=== PATIENT | female | born 1930 | race Caucasian/White ===

== ENCOUNTER → 2016-08-12 | Outpatient (CLI) | payer MEDICARE, BC | LOC: RAD 13:44 | PROVIDERS: ATTEND Internal Medicine Nephrology | DX: N18.3 Chronic kidney disease, stage 3 (moderate) (principal); N28.1 Cyst of kidney, acquired | CPT/HCPCS: 76770 ==

== ENCOUNTER 2017-03-15 12:41 | Inpatient (IN) | payer MEDICARE, BC ==
[2017-03-15] MEDS ORDERED: NORMAL SALINE 1000 ML 1,000 ML IV ONE (12:57)
--- NOTE | 2017-03-15 12:58 | ER Document Report ---
ED Medical Screen (RME) - General Chief Complaint: Diarrhea Stated Complaint: POSSIBLE DEHYDRATION Time Seen by Provider: 03/15/17 12:56 Notes: Patient was referred here by primary care physician. Patient has had weakness with decreased appetite and decreased fluid intake for several weeks. Patient has been complaining of some generalized nausea and abdominal "upset". Patient is also been complaining of headache and feeling "foggy". TRAVEL OUTSIDE OF THE [place] IN LAST 30 DAYS: No - Related Data Allergies/Adverse Reactions: sulfamethoxazole [From Septra] Allergy (Unknown, Verified 03/15/17 12:48) trimethoprim [From Septra] Allergy (Unknown, Verified 03/15/17 12:48) Past Medical History - Past Medical History Cardiac Medical History: Reports: Hx Hypertension Neurological Medical History: Denies: Hx Cerebrovascular Accident, Hx Migraine, Hx Seizures Renal/ Medical History: Denies: Hx Peritoneal Dialysis Past Surgical History: Reports: Hx Cholecystectomy Physical Exam - Vital signs Vitals: Pulse Resp BP Pulse Ox 61 18 100/52 L 99 03/15/17 12:47 03/15/17 12:47 03/15/17 12:47 03/15/17 12:47 Course - Vital Signs Vital signs: Temp Pulse Resp BP Pulse Ox 61 18 100/52 L 99 03/15/17 12:47 03/15/17 12:47 03/15/17 12:47 03/15/17 12:47
[2017-03-15 13:46] LABS: ABSOLUTE BASOPHILS # (AUTO) 0.1 10^3/uL (0.0-0.2); ABSOLUTE EOSINOPHILS # (AUTO) 0.1 10^3/uL (0.0-0.6); ABSOLUTE LYMPHOCYTES (AUTO) 2.3 10^3/uL (0.5-4.7); ABSOLUTE MONOCYTES (AUTO) 0.6 10^3/uL (0.1-1.4); ABSOLUTE NEUT (AUTO) 6.8 10^3/uL (1.7-8.2); BASOPHILS % (AUTO) 0.9 % (0-2); EOSINOPHILS % (AUTO) 1.4 % (0-6); HEMATOCRIT 40.7 % (36.0-47.0); HEMOGLOBIN 13.8 g/dL (12.0-15.5); HGB HCT DIFFERENCE 0.7; LYMPHOCYTES % (AUTO) 23.4 % (13-45); MEAN CORPUSCULAR HEMOGLOBIN 30.4 pg (27.0-33.4); MEAN CORPUSCULAR VOLUME 89 fl (80-97); MONOCYTES % (AUTO) 6.1 % (3-13); RED BLOOD COUNT 4.55 10^6/uL (3.72-5.28); RED CELL DISTRIBUTION WIDTH 13.4 % (11.5-14.0); SEGMENTED NEUTROPHILS % (AUTO) 68.2 % (42-78); WHITE BLOOD COUNT 9.9 10^3/uL (4.0-10.5)
[2017-03-15 13:59] LABS: APPEARANCE,URINE TURBID; BILIRUBIN,URINE NEGATIVE (NEGATIVE); GLUCOSE, URINE NEGATIVE (NEGATIVE); KETONES,URINE NEGATIVE (NEGATIVE); LEUKOCYTE ESTERASE,URINE LARGE (NEGATIVE); NITRITE,URINE NEGATIVE (NEGATIVE); PROTEIN,URINE 30 mg/dL (NEGATIVE); URINE SPECIFIC GRAVITY 1.015; UROBILINOGEN,URINE NEGATIVE mg/dL (<2.0)
--- NOTE | 2017-03-15 14:11 | ER Document Report ---
ED General - General Chief Complaint: Diarrhea Stated Complaint: POSSIBLE DEHYDRATION Time Seen by Provider: 03/15/17 12:56 Information source: Patient, Relative Notes: 86-year-old female patient. 2 week history of worsening diarrhea. Now feeling very dehydrated. Has a mild headache. No significant abdominal pain. Patient states that she started on some blood pressure medications about a month ago. This is the only change. Denies any recent antibiotic use. No recent surgeries. Medication that was started with lisinopril. Patient denies any swelling in the mouth. No tongue swelling. No other issues. Having frequent loose stools. Denies any dysuria TRAVEL OUTSIDE OF THE [place] IN LAST 30 DAYS: No - HPI Onset: Last week Onset/Duration: Gradual Quality of pain: Achy, Cramping Severity: Mild Pain Level: 1 Associated symptoms: Diarrhea, Hoarseness, Nausea. denies: Vomiting Exacerbated by: Denies - Related Data Allergies/Adverse Reactions: sulfamethoxazole [From Septra] Allergy (Unknown, Verified 03/15/17 12:48) trimethoprim [From Septra] Allergy (Unknown, Verified 03/15/17 12:48) Past Medical History - General Information source: Patient, Relative - Social History Smoking Status: Unknown if Ever Smoked Chew tobacco use (# tins/day): No Frequency of alcohol use: None Drug Abuse: None Family History: Reviewed & Not Pertinent Patient has suicidal ideation: No Patient has homicidal ideation: No - Past Medical History Cardiac Medical History: Reports: Hx Hypertension Neurological Medical History: Denies: Hx Cerebrovascular Accident, Hx Migraine, Hx Seizures Renal/ Medical History: Denies: Hx Peritoneal Dialysis Past Surgical History: Reports: Hx Cholecystectomy - Immunizations Hx Pneumococcal Vaccination: 05/08/07 Review of Systems - Review of Systems Constitutional: No symptoms reported, Malaise, Weakness EENT: No symptoms reported, Other - Dry mucous membranes Cardiovascular: No symptoms reported Respiratory: No symptoms reported Gastrointestinal: No symptoms reported, See HPI, Diarrhea Genitourinary: No symptoms reported Female Genitourinary: No symptoms reported Musculoskeletal: No symptoms reported Skin: No symptoms reported Hematologic/Lymphatic: No symptoms reported Neurological/Psychological: No symptoms reported, Headaches Physical Exam - Vital signs Vitals: Pulse Resp BP Pulse Ox 61 18 100/52 L 99 03/15/17 12:47 03/15/17 12:47 03/15/17 12:47 03/15/17 12:47 Interpretation: Normal - General General appearance: Appears well, Alert - HEENT Head: Normocephalic, Atraumatic Eyes: Normal Pupils: PERRL Mucous membranes: Dry - Respiratory Respiratory status: No respiratory distress Chest status: Nontender Breath sounds: Normal Chest palpation: Normal - Cardiovascular Rhythm: Regular Heart sounds: Normal auscultation Murmur: No - Abdominal Inspection: Normal Distension: No distension Bowel sounds: Hyperactive Tenderness: Nontender. No: Tender, Tucker's sign, Guarding, Rebound Organomegaly: No organomegaly - Back Back: Normal, Nontender - Extremities General upper extremity: Normal inspection, Nontender, Normal color, Normal ROM , Normal temperature General lower extremity: Normal inspection, Nontender, Normal color, Normal ROM , Normal temperature, Normal weight bearing. No: Ludmila's sign - Neurological Neuro grossly intact: Yes Cognition: Normal Orientation: AAOx4 Vicky Coma Scale Eye Opening: Spontaneous [place] Coma Scale Verbal: Oriented Vicky Coma Scale Motor: Obeys Commands [place] Coma Scale Total: 15 Speech: Normal Motor strength normal: LUE, RUE, LLE, RLE Sensory: Normal - Psychological Associated symptoms: Normal affect, Normal mood - Skin Skin Temperature: Warm Skin Moisture: Dry Skin Color: Normal Course - Re-evaluation Re-evalutation: 03/15/17 15:46 Patient obviously mildly dehydrated with very dry buccal mucosa. Will get x- ray of the abdomen, cardiac workup, electrolytes, urinalysis, head CT due to the headache and reassess. The patient has a bowel movement here will send for C. difficile and culture - Vital Signs Vital signs: Temp Pulse Resp BP Pulse Ox 61 18 100/52 L 99 03/15/17 12:47 03/15/17 12:47 03/15/17 12:47 03/15/17 12:47 - Laboratory Result Diagrams: 03/15/17 13:30 03/15/17 15:48 Laboratory results interpreted by me: 03/15/17 03/15/17 03/15/17 13:30 15:48 15:48 Chloride 109 H Carbon Dioxide 16 L BUN 121 H Creatinine 5.90 H Est GFR ( Amer) 8 L Est GFR (Non-Af Amer) 7 L Direct Bilirubin 0.5 H Creatine Kinase 25 L Urine Protein 30 H Ur Leukocyte Esterase LARGE H Urine Ascorbic Acid 40 H Discharge - Discharge Clinical Impression: Urinary (tract) obstruction Acute renal failure Qualifiers: Acute renal failure type: unspecified Qualified Code(s): N17.9 - Acute kidney failure, unspecified Condition: Fair Disposition: ADMITTED INPATIENT Admitting Provider: Yasmany Marshall Unit Admitted: Telemetry
--- NOTE | 2017-03-15 14:23 | RADIOLOGY REPORT (SQ) ---
EXAM DESCRIPTION: CT HEAD WITHOUT COMPLETED DATE/TIME: 03/15/2017 2:13 pm REASON FOR STUDY: mendez/ams COMPARISON: None. TECHNIQUE: Axial images acquired through the brain without intravenous contrast. Images reviewed wi th bone, brain and subdural windows. Images stored on PACS. All CT scanners at this facility use dose modulation, iterative reconstruction, and/or weight based d osing when appropriate to reduce radiation dose to as low as reasonably achievable (ALARA). [facility]: Dose Right [facility]: CareDose [facility]: Dose Right [facility]: Teradose 4D [facility]: Smart [employer] RADIATION DOSE: Up-to-date CT equipment and radiation dose reduction techniques were employed. CTDIv ol: 64.6 mGy. DLP: 1163 mGy-cm. mGy. LIMITATIONS: None. FINDINGS: VENTRICLES: Normal size and contour. CEREBRUM: No masses. No hemorrhage. No midline shift. No evidence for acute infarction. Few scatte red areas of low density in the white matter most likely chronic small vessel ischemic changes. Mild cortical atrophy. CEREBELLUM: No masses. No hemorrhage. No alteration of density. No evidence for acute infarction. EXTRAAXIAL SPACES: No fluid collections. No masses. ORBITS AND GLOBE: No intra- or extraconal masses. Normal contour of globe without masses. CALVARIUM: No fracture. PARANASAL SINUSES: No fluid or mucosal thickening. SOFT TISSUES: No mass or hematoma. OTHER: No other significant finding. IMPRESSION: Involutional changes of aging with microvascular ischemia and no acute intracranial find ings. EVIDENCE OF ACUTE STROKE: NO. COMMENT: Quality ID # [id number]: Final reports with documentation of one or more dose reduction techniques (e.g., Automated exposure control, adjustment of the mA and/or kV according to patient size, use of iterative reconstruction technique) TECHNICAL DOCUMENTATION: JOB ID: [id number] [employer]- All Rights Reserved
--- NOTE | 2017-03-15 15:55 | RADIOLOGY REPORT (SQ) ---
EXAM DESCRIPTION: ACUTE ABDOMEN SERIES COMPLETED DATE/TIME: 03/15/2017 3:44 pm REASON FOR STUDY: diarrhea and abd pain COMPARISON: None. NUMBER OF VIEWS: Three views. TECHNIQUE: Frontal chest, supine abdomen and upright/decubitus abdomen radiographic images acquired. LIMITATIONS: Study is limited somewhat due to the patient's body habitus. FINDINGS: CHEST: No acute consolidations or pleural effusions are identified. Nodular density is id entified in the left mid lung feel and the possibility of a neoplastic process cannot be excluded. FREE AIR: None. No abnormal gas collections. BOWEL GAS PATTERN: Nonobstructive pattern. No dilated loops or air fluid levels. CALCIFICATIONS: No suspicious calcifications. HARDWARE: Surgical clips are identified in the right upper quadrant. Surgical clips are identified o verlying the upper pelvis in the midline. SOFT TISSUES: No gross mass or suggestion of organomegaly. BONES: No acute fracture. No worrisome bone lesions. OTHER: No other significant finding. IMPRESSION: Somewhat limited study as noted above. A nodular density is identified in the left mid lung field and the possibility of a neoplastic process cannot be excluded. Other findings as noted susie montano TECHNICAL DOCUMENTATION: JOB ID: [id number] [employer]- All Rights Reserved
[2017-03-15] MEDS ORDERED: CEFTRIAXONE INJ 1000 MG VIAL IV ONE (16:05)
[2017-03-15 16:24] LABS: ALANINE AMINOTRANSFERASE 21 U/L (9-52); ALBUMIN 3.8 g/dL (3.5-5.0); ALKALINE PHOSPHATASE 54 U/L (38-126); ANION GAP 17 (5-19); ASPARTATE AMINO TRANSFERASE 20 U/L (14-36); BILIRUBIN,DIRECT 0.5 mg/dL (0.0-0.4); BILIRUBIN,TOTAL 0.5 mg/dL (0.2-1.3); CALCIUM 8.8 mg/dL (8.4-10.2); CARBON DIOXIDE 16 mmol/L (22-30); CHLORIDE 109 mmol/L (98-107); GLUCOSE 93 mg/dL (75-110); POTASSIUM 4.1 mmol/L (3.6-5.0); SODIUM 141.7 mmol/L (137-145); TOTAL PROTEIN 6.4 g/dL (6.3-8.2)
[2017-03-15 16:38] LABS: BLOOD UREA NITROGEN 121 mg/dL (7-20); TROPONIN I < 0.012 ng/mL
--- NOTE | 2017-03-15 17:55 | RADIOLOGY REPORT (SQ) ---
EXAM DESCRIPTION: CT CHEST WITHOUT; CT ABD/PELVIS NO ORAL OR IV COMPLETED DATE/TIME: 03/15/2017 5:34 pm REASON FOR STUDY: Abnormal x-ray abnormal x-ray; Acute renal failure with infection concern for obs COMPARISON: Earlier radiograph TECHNIQUE: CT scan of the chest performed without intravenous contrast using helical scanning techni que. Images reviewed with lung, soft tissue and bone windows. Reconstructed coronal and sagittal MPR images reviewed. All images stored on PACS. CT scan of the abdomen and pelvis performed without intravenous contrast and withoutoral contrast usi ng helical scanning technique with dynamic intravenous contrast injection. Images reviewed with lung , soft tissue and bone windows. Reconstructed coronal and sagittal MPR images reviewed. All images stored on PACS. All CT scanners at this facility use dose modulation, iterative reconstruction, and/or weight based d osing when appropriate to reduce radiation dose to as low as reasonably achievable (ALARA). [facility]: Dose Right [facility]: CareDose [facility]: Dose Right [facility]: Teradose 4D [facility]: [employer] RADIATION DOSE: Up-to-date CT equipment and radiation dose reduction techniques were employed. CTDIv ol: 16.5 mGy. DLP: 1097 mGy-cm. mGy. LIMITATIONS: No technical limitations. FINDINGS: CHEST: AXILLAE: No adenopathy. CHEST WALL: No masses. No subcutaneous air. LUNGS: No nodules or masses. No pneumothorax. No infiltrates. PLEURA: No effusions. No calcifications. THYROID: No masses or significant asymmetry. HILAR AND MEDIASTINAL STRUCTURES: No identified masses or abnormal nodes. AORTA AND GREAT VESSELS: No aneurysm. HEART: No pericardial effusion. HARDWARE AND LIFELINES: None. BONES: 2 cm calcified benign-appearing bone lesion in the inferior aspect of the posterior left 8th r ib. No acute findings. OTHER: No other significant finding. ABDOMEN AND PELVIS: LIVER: Normal size. No masses. No dilated ducts. SPLEEN: Normal size. No focal lesions. PANCREAS: No masses. No significant calcifications. No adjacent inflammation or peripancreatic flui d collections. Pancreatic duct not dilated. GALLBLADDER: Surgically absent. ADRENAL GLANDS: No significant masses or asymmetry. RIGHT KIDNEY AND URETER: No solid masses. Assessment limited by lack of IV contrast. No significant calcifications. No hydronephrosis or hydroureter. LEFT KIDNEY AND URETER: No solid masses. Assessment limited by lack of IV contrast. No significant calcifications. No hydronephrosis or hydroureter. AORTA AND VESSELS: No aneurysm. RETROPERITONEUM: No retroperitoneal adenopathy, hemorrhage or masses. APPENDIX: Normal. LARGE AND SMALL BOWEL: No dilatation. No masses. No wall thickening. ABDOMINAL WALL: Prior ventral hernia repair. PERITONEAL CAVITY: No free air. No free fluid. No peritoneal implants or masses. PELVIS: No free fluid. Prior hysterectomy. Normal bladder. BONES: No acute findings. Multilevel degenerative changes. OTHER: No other significant finding. IMPRESSION: 2 cm calcified benign-appearing bone lesion in the inferior aspect of the posterior left 8th rib explains the radiographic appearance. No pulmonary mass. No acute findings in the abdomen or pelvis. TECHNICAL DOCUMENTATION: JOB ID: [id number] Quality ID # [id number]: Final reports with documentation of one or more dose reduction techniques (e.g., Au tomated exposure control, adjustment of the mA and/or kV according to patient size, use of iterative reconstruction technique) 2010 [employer]- All Rights Reserved
[2017-03-15] MEDS ORDERED: NORMAL SALINE 1000 ML 1,000 ML IV PRN (18:29)
[2017-03-15] MEDS ORDERED: ONDANSETRON HCL INJ/PF 4 MG/2 ML SDV IV PRN (18:29)
[2017-03-15] MEDS ORDERED: DIPHENHYDRAMINE HCL 50 MG PO PRN (18:35)
--- NOTE | 2017-03-15 19:14 | PDOC H&P ---
History of Present Illness Admission Date/PCP: 03/15/17 18:16 Patient complains of: Generalized weakness and diarrhea History of Present Illness: Patient is an 86-year-old woman with history of hypertension, depression myasthenia gravis presented to the hospital with complaint of intermittent loose stools for the past 2 week and decreased appetite. She denies having any abdominal pain no nausea vomiting. She denies any recent antibiotic use or sick contact. She is on lisinopril and HCTZ and has been taking her medication as prescribed. She denies having any fever chills and she has no evidence of leukocytosis on presentation. She lives at home by herself. Her son and [id number] present during my round, they decided to bring her to the hospital because she was progressively getting weaker. CT scan of her abdomen without acute findings findings and 2 cm calcifying benign- appearing bone lesion in the inferior aspect of the posterior left eighth rib. No Pulmonary mass. She was found to have a creatinine of 5.9, BUN of 121 and CO2 16. She was started on IVF in ED and had no complaints during my visit. Past Medical History Cardiac Medical History: Reports: Hypertension, Other - Myasthenia gravis Neurological Medical History: Denies: Migraine, Seizures Past Surgical History Past Surgical History: Reports: Cholecystectomy Social History Lives with: Alone Smoking Status: Unknown if Ever Smoked Frequency of Alcohol Use: None Hx Recreational Drug Use: No Family History Family History: Reviewed & Not Pertinent, Malignancy - Brother with bone cancer Parental Family History Reviewed: Yes Children Family History Reviewed: Yes Sibling(s) Family History Reviewed.: Yes Medication/Allergy Home Medications: Aspirin [Aspirin EC] 81 mg PO DAILY 03/15/17 Atorvastatin Calcium [Lipitor 20 mg Tablet] 20 mg PO QHS 03/15/17 Bisoprolol/Hydrochlorothiazide [Ziac 5-6.25 mg Tablet] 1 tab PO Q12 03/15/17 Diphenhydramine HCl [Nighttime Sleep Aid] 50 mg PO HSP PRN 03/15/17 Ergocalciferol (Vitamin D2) [Vitamin D2] 50,000 unit PO WE@1000 03/15/17 Fenofibrate 160 mg PO QHS 03/15/17 Lisinopril [Prinivil 2.5 mg Tablet] 2.5 mg PO DAILY 03/15/17 Sertraline HCl [Zoloft] 25 mg PO DAILY 03/15/17 Allergies/Adverse Reactions: sulfamethoxazole [From Septra] Allergy (Unknown, Verified 03/15/17 12:48) trimethoprim [From Septra] Allergy (Unknown, Verified 03/15/17 12:48) Review of Systems Constitutional: PRESENT: anorexia. ABSENT: chills, fever(s), headache(s), weight gain, weight loss Eyes: ABSENT: visual disturbances Ears: ABSENT: hearing changes Cardiovascular: ABSENT: chest pain, dyspnea on exertion, edema, orthropnea, palpitations Respiratory: ABSENT: cough, hemoptysis Gastrointestinal: PRESENT: diarrhea. ABSENT: abdominal pain, constipation, hematemesis, hematochezia, nausea, vomiting Genitourinary: ABSENT: dysuria, hematuria Musculoskeletal: ABSENT: joint swelling Integumentary: ABSENT: rash, wounds Neurological: PRESENT: weakness. ABSENT: abnormal gait, abnormal speech, confusion, dizziness, focal weakness, syncope Psychiatric: ABSENT: anxiety, depression, homidical ideation, suicidal ideation Endocrine: ABSENT: cold intolerance, heat intolerance, polydipsia, polyuria Hematologic/Lymphatic: ABSENT: easy bleeding, easy bruising Physical Exam Vital Signs: Temp Pulse Resp BP Pulse Ox 61 18 100/52 L 99 03/15/17 12:47 03/15/17 12:47 03/15/17 12:47 03/15/17 12:47 Results Laboratory Results: 03/15/17 03/15/17 03/15/17 15:48 15:48 17:50 Sodium 141.7 Potassium 4.1 Chloride 109 H Carbon Dioxide 16 L Anion Gap 17 BUN 121 H Creatinine 5.90 H Lactic Acid 1.3 Calcium 8.8 Troponin I < 0.012 Impressions: Head CT 03/15/17 12:57 IMPRESSION: Involutional changes of aging with microvascular ischemia and no acute intracranial findings. EVIDENCE OF ACUTE STROKE: NO. Acute Abdomen Series 03/15/17 15:09 IMPRESSION: Somewhat limited study as noted above. A nodular density is identified in the left mid lung field and the possibility of a neoplastic process cannot be excluded. Other findings as noted above Abdomen/Pelvis CT 03/15/17 17:11 IMPRESSION: 2 cm calcified benign-appearing bone lesion in the inferior aspect of the posterior left 8th rib explains the radiographic appearance. No pulmonary mass. No acute findings in the abdomen or pelvis. Chest CT 03/15/17 17:11 IMPRESSION: 2 cm calcified benign-appearing bone lesion in the inferior aspect of the posterior left 8th rib explains the radiographic appearance. No pulmonary mass. No acute findings in the abdomen or pelvis. Assessment & Plan - Diagnosis (1) Generalized weakness Is this a current diagnosis for this admission?: Yes Plan: This is likely secondary to dehydration vs UTI Continue IV fluid and she has been given ceftriaxone Follow-up blood and urine culture (2) Urinary tract infection Qualifiers: Urinary tract infection type: acute cystitis Is this a current diagnosis for this admission?: Yes Plan: Continue ceftriaxone and follow-up urine culture (3) Acute renal failure Qualifiers: Acute renal failure type: with acute tubular necrosis Qualified Code(s): N17.0 - Acute kidney failure with tubular necrosis Is this a current diagnosis for this admission?: Yes Plan: Likely secondary to dehydration exacerbated by HCTZ and lisinopril CAT scan of the abdomen without evidence of hydronephrosis Continue IV fluid hydration Renally dosed all medication Strict intake and output (4) Hypertension Qualifiers: Hypertension type: essential hypertension Qualified Code(s): I10 - Essential (primary) hypertension Is this a current diagnosis for this admission?: Yes Plan: Blood pressure borderline low Holding home antihypertensive Continue IV fluid hydration (5) Dehydration Is this a current diagnosis for this admission?: Yes Plan: Likely in the setting of GI loss Continue IV fluid hydration (6) Metabolic acidosis Is this a current diagnosis for this admission?: Yes Plan: In the setting of GI losses On IV fluid hydration and follow-up lab (7) DVT prophylaxis Is this a current diagnosis for this admission?: Yes Plan: Heparin subQ - Time Time Spent: 50 to 70 Minutes Medications reviewed and adjusted accordingly: Yes Anticipated discharge: Home - Inpatient Certification Based on my medical assessment, after consideration of the patient's comorbidities, presenting symptoms, or acuity I expect that the services needed warrant INPATIENT care.: Yes I certify that my determination is in accordance with my understanding of Medicare's requirements for reasonable and necessary INPATIENT services [42 CFR 412.3e].: Yes Medical Necessity: Need For IV Fluids, Need for IV Antibiotics
[2017-03-15] MEDS: ATORVASTATIN CALCIUM 20 MG TABLET PO SCH (21:32)
[2017-03-15] MEDS: FENOFIBRATE NANOCRYSTALLIZED 145 MG TABLET PO SCH (21:32)
[2017-03-15] MEDS ORDERED: (PENDING PHARMACY ID) (Fenofibrate [Fenofibrate] 160 MG) PO SCH (22:00)
[2017-03-15] MEDS: HEPARIN SOD (PORCINE) 5,000 UNIT/ML 1 ML SYRINGE SUBCUT SCH (23:14)
[2017-03-16] MEDS: HEPARIN SOD (PORCINE) 5,000 UNIT/ML 1 ML SYRINGE SUBCUT SCH ×3 (05:58→22:47)
[2017-03-16 07:01] LABS: ABSOLUTE BASOPHILS # (AUTO) 0.1 10^3/uL (0.0-0.2); ABSOLUTE EOSINOPHILS # (AUTO) 0.2 10^3/uL (0.0-0.6); ABSOLUTE LYMPHOCYTES (AUTO) 1.6 10^3/uL (0.5-4.7); ABSOLUTE MONOCYTES (AUTO) 0.5 10^3/uL (0.1-1.4); ABSOLUTE NEUT (AUTO) 4.4 10^3/uL (1.7-8.2); BASOPHILS % (AUTO) 1.2 % (0-2); EOSINOPHILS % (AUTO) 2.3 % (0-6); HEMATOCRIT 34.2 % (36.0-47.0); HGB HCT DIFFERENCE 0.9; LYMPHOCYTES % (AUTO) 23.7 % (13-45); MEAN CORPUSCULAR HEMOGLOBIN 30.7 pg (27.0-33.4); MEAN CORPUSCULAR HGB CONC 34.1 g/dL (32.0-36.0); MEAN CORPUSCULAR VOLUME 90 fl (80-97); MONOCYTES % (AUTO) 7.4 % (3-13); RED CELL DISTRIBUTION WIDTH 13.4 % (11.5-14.0); SEGMENTED NEUTROPHILS % (AUTO) 65.4 % (42-78); WHITE BLOOD COUNT 6.7 10^3/uL (4.0-10.5)
[2017-03-16 07:05] LABS: HEMOGLOBIN 11.7 g/dL (12.0-15.5)
[2017-03-16] MEDS ORDERED: INFLUENZA ADLT QUAD (36MOS+) 2017-18 VAC 0.5 ML SYR IM PRN (07:30)
[2017-03-16 07:34] LABS: ANION GAP 16 (5-19); BLOOD UREA NITROGEN 113 mg/dL (7-20); CALCIUM 8.8 mg/dL (8.4-10.2); CARBON DIOXIDE 13 mmol/L (22-30); CHLORIDE 115 mmol/L (98-107); CREATININE RESULT 4.65 mg/dL (0.52-1.25); GLUCOSE 88 mg/dL (75-110); MAGNESIUM 2.3 mg/dL (1.6-2.3); POTASSIUM 3.6 mmol/L (3.6-5.0); SODIUM 144.3 mmol/L (137-145)
--- NOTE | 2017-03-16 08:05 | EKG REPORT ---
SEVERITY:- ABNORMAL ECG - SINUS RHYTHM NONSPECIFIC INTRAVENTRICULAR CONDUCTION DELAY : Confirmed by: Davion Gray MD 16-Mar-2017 08:05:17
[2017-03-16] MEDS ORDERED: (PENDING PHARMACY ID) (Sertraline Hcl [Zoloft] 25 MG) PO SCH (10:00)
[2017-03-16] MEDS: ASPIRIN 81 MG TABLET, ENT COATED PO SCH (10:54)
[2017-03-16] MEDS: SODIUM BICARBONATE 650 MG TABLET PO SCH ×3 (10:54→17:40)
[2017-03-16] MEDS: SERTRALINE HCL 50 MG TABLET PO SCH (10:54)
[2017-03-16] MEDS ORDERED: CEFTRIAXONE SODIUM 1,500 MG in DEXTROSE 5%-WATER 100 ML IV SCH (18:00)
--- NOTE | 2017-03-16 18:40 | PDOC CONSULTATION ---
Consultation Consult Date: 03/16/17 Attending physician:: YASIR MARSHALL Consult reason:: I was asked by Dr. Marshall to see the patient because of worsening kidney function. History of Present Illness Admission Date/PCP: 03/15/17 18:29 History of Present Illness: Patient is an 86-year-old woman with history of hypertension, depression, myasthenia gravis and chronic kidney disease who presented to the hospital with complaint of intermittent loose stools for the past 2 week and decreased appetite. She denies having any abdominal pain, no nausea vomiting. She denies any recent antibiotic use or sick contact. She is on lisinopril and HCTZ and has been taking her medication as prescribed. She denies having any fever chills and she has no evidence of leukocytosis on presentation. She lives at home by herself. Her son and [id number] present during my round, they decided to bring her to the hospital because she was progressively getting weaker. CT scan of her abdomen without acute findings findings and 2 cm calcifying benign-appearing bone lesion in the inferior aspect of the posterior left eighth rib. No Pulmonary mass. She was found to have a creatinine of 5.9 , BUN of 121 and CO2 16. She was started on IVF. I tried to confirm with the patient about the history of diarrhea but she could not really specify or provide more information regarding this. She was not a very good historian and sometimes she has some difficulty with articulation. She tells me she had an headache. She does say though that she feels tired and just did not want to do anything at home for the last week at least. He said she has no energy and she feels weak. She admits that her appetite is not good and for a few days she is was only taking in Ensure without much solid food. She admits not drinking much water. She describes urinary urgency but denies any dysuria. She denies fever. She continues to receive IV fluids and IV antibiotics for urinary tract infection as of this time. She denies any chest pains, shortness of breath, no leg swelling. Today her kidney function showed that her BUN is 115 creatinine is slightly better at 4.65 with estimated GFR of 9 from 7 yesterday. Her bicarbonate is worse at 13 after IV fluid hydration. She otherwise looks hemodynamically stable. She is making some urine output but not sure if it is adequately recorded. Her noncontrast abdominal CT did not show any hydronephrosis, calcifications nor masses bilaterally. Past Medical History Cardiac Medical History: Reports: Hypertension-primary Neurological Medical History: Reports: Other - Myasthenia gravis Renal/ Medical History: Reports: Chronic Kidney Disease Stage III Past Surgical History Past Surgical History: Reports: Cholecystectomy, Hysterectomy, Other - Cataract surgery Social History Information Source: Patient Lives with: Alone Smoking Status: Never Smoker Frequency of Alcohol Use: None Hx Recreational Drug Use: No Drugs: None Hx Prescription Drug Abuse: No - Advance Directive Resuscitation Status: Full Code Family History Family History: Malignancy - Brother has a bone cancer, Other - Brother has emphysema Parental Family History Reviewed: Yes Children Family History Reviewed: Yes Sibling(s) Family History Reviewed.: Yes Medication/Allergy Home Medications: Aspirin [Aspirin EC] 81 mg PO DAILY 03/15/17 Atorvastatin Calcium [Lipitor 20 mg Tablet] 20 mg PO QHS 03/15/17 Bisoprolol/Hydrochlorothiazide [Ziac 5-6.25 mg Tablet] 1 tab PO Q12 03/15/17 Diphenhydramine HCl [Nighttime Sleep Aid] 50 mg PO HSP PRN 03/15/17 Ergocalciferol (Vitamin D2) [Vitamin D2] 50,000 unit PO WE@1000 03/15/17 Fenofibrate 160 mg PO QHS 03/15/17 Lisinopril [Prinivil 2.5 mg Tablet] 2.5 mg PO DAILY 03/15/17 Sertraline HCl [Zoloft] 25 mg PO DAILY 03/15/17 Allergies/Adverse Reactions: sulfamethoxazole [From Septra] Allergy (Unknown, Verified 03/15/17 12:48) trimethoprim [From Septra] Allergy (Unknown, Verified 03/15/17 12:48) Review of Systems All systems: reviewed and no additional remarkable complaints except as stated Review of Systems: Constitutional: ABSENT: chills, fever(s), weight gain, weight loss; admits fatigue, generalized weakness, decreased energy, and headache Eyes: ABSENT: visual disturbances Ears: ABSENT: hearing changes Cardiovascular: ABSENT: chest pain, dyspnea on exertion, edema, orthropnea, palpitations Respiratory: ABSENT: cough, dyspnea, hemoptysis Gastrointestinal: ABSENT: abdominal pain, constipation, hematemesis, hematochezia, nausea, vomiting; admits diarrhea Genitourinary: ABSENT: dysuria, hematuria; admits urinary urgency Musculoskeletal: ABSENT: joint swelling Integumentary: ABSENT: rash, wounds Neurological: ABSENT: abnormal gait, abnormal speech, confusion, dizziness, focal weakness, numbness, syncope Psychiatric: ABSENT: anxiety, depression Endocrine: ABSENT: cold intolerance, heat intolerance, polydipsia, polyuria Hematologic/Lymphatic: ABSENT: easy bleeding, easy bruising, lymphadenopathy Physical Exam Vital Signs: Temp Pulse Resp BP Pulse Ox 97.3 F 57 L 18 101/49 L 98 03/16/17 11:40 03/16/17 15:48 03/16/17 11:40 03/16/17 15:48 03/16/17 15:48 Intake & Output 03/15/17 03/16/17 03/17/17 06:59 06:59 06:59 Intake Total 1040 3507 Output Total 300 Balance 740 3507 Weight 82.1 kg Exam: General appearance: no acute distress, cooperative, well-developed, well- nourished Head exam: PRESENT: atraumatic, normocephalic Eye exam: PRESENT: Conjunctiva [place], EOMI, PERRLA. ABSENT: conjunctival injection, scleral icterus Mouth exam: PRESENT: moist, neck supple, tongue midline Neck exam: PRESENT: full ROM. ABSENT: carotid bruit, JVD, lymphadenopathy, thyromegaly Respiratory exam: PRESENT: clear to auscultation bilaterally. ABSENT: rales, rhonchi, stridor, wheezes Cardiovascular exam: PRESENT: RRR, +S1, +S2. ABSENT: systolic murmur Pulses: PRESENT: normal radial pulses, normal dorsalis pedis pulses GI/Abdominal exam: PRESENT: normal bowel sounds, soft. ABSENT: guarding, mass, tenderness Rectal exam: deferred Extremities exam: PRESENT: full ROM. ABSENT: calf tenderness, pedal edema Musculoskeletal: PRESENT: full ROM. ABSENT: deformity Neurological exam: PRESENT: alert, Awake, Oriented to person, Oriented to place , Oriented to time, reflexes normal, CN II-XII grossly intact. She has difficulty with articulation and speech. ABSENT: motor sensory deficit Psychiatric exam: PRESENT: appropriate affect, normal mood. ABSENT: homicidal ideation, suicidal ideation Skin exam: PRESENT: intact, dry, warm. ABSENT: rash Results Laboratory Results: 03/16/17 06:30 03/16/17 06:30 03/16/17 03/16/17 06:30 06:30 WBC 6.7 RBC 3.80 Hgb 11.7 L D Hct 34.2 L MCV 90 MCH 30.7 MCHC 34.1 RDW 13.4 Plt Count 170 Seg Neutrophils % 65.4 Lymphocytes % 23.7 Monocytes % 7.4 Eosinophils % 2.3 Basophils % 1.2 Absolute Neutrophils 4.4 Absolute Lymphocytes 1.6 Absolute Monocytes 0.5 Absolute Eosinophils 0.2 Absolute Basophils 0.1 Sodium 144.3 Potassium 3.6 Chloride 115 H Carbon Dioxide 13 L Anion Gap 16 BUN 113 H Creatinine 4.65 H Est GFR ( Amer) 11 L Est GFR (Non-Af Amer) 9 L Glucose 88 Calcium 8.8 Magnesium 2.3 Impressions: Head CT 03/15/17 12:57 IMPRESSION: Involutional changes of aging with microvascular ischemia and no acute intracranial findings. EVIDENCE OF ACUTE STROKE: NO. Acute Abdomen Series 03/15/17 15:09 IMPRESSION: Somewhat limited study as noted above. A nodular density is identified in the left mid lung field and the possibility of a neoplastic process cannot be excluded. Other findings as noted above Abdomen/Pelvis CT 03/15/17 17:11 IMPRESSION: 2 cm calcified benign-appearing bone lesion in the inferior aspect of the posterior left 8th rib explains the radiographic appearance. No pulmonary mass. No acute findings in the abdomen or pelvis. Chest CT 03/15/17 17:11 IMPRESSION: 2 cm calcified benign-appearing bone lesion in the inferior aspect of the posterior left 8th rib explains the radiographic appearance. No pulmonary mass. No acute findings in the abdomen or pelvis. Assessment & Plan - Diagnosis (1) Acute kidney injury superimposed on chronic kidney disease Is this a current diagnosis for this admission?: Yes Plan: Patient is nonoliguric and her urine does not show any microscopic hematuria with minimal proteinuria. This could be most likely secondary to acute prerenal azotemia secondary to volume depletion. Agree with holding the FERNANDO inhibitors and hydrochlorothiazide nor any other nephrotoxic agents. Agree with initial IV fluid hydration. Continue to monitor the patient's kidney function as well as intake and output daily. Correct electrolytes as necessary. At this point I do not think there is any urgent or emergent indication for renal replacement therapy. I will give the chance to her kidneys to recover spontaneously without any renal replacement therapy. However I did discuss the process of possible hemodialysis with the patient in case that her kidney function does not recover. She tells me that she does not really want to do hemodialysis but when asked her just for couple of treatments for acute worsening of kidney function he seems to be unable to answer. So I told her to think about it just in case we would need it but at this point she does not require to have it done. (2) Acute prerenal azotemia Is this a current diagnosis for this admission?: Yes (3) Metabolic acidosis Is this a current diagnosis for this admission?: Yes Plan: She has not anion gap metabolic acidosis likely secondary to acute kidney injury. I will change her IV fluid to a sodium bicarbonate drip with 100 mEq of sodium bicarbonate in D5W to run at 100 mL an hour. May continue oral sodium bicarbonate at this point. (4) Urinary tract infection Qualifiers: Urinary tract infection type: acute cystitis Is this a current diagnosis for this admission?: Yes Plan: Continue IV antibiotics. (5) Dehydration Is this a current diagnosis for this admission?: Yes Plan: Continue IV fluid hydration. (6) Anemia Is this a current diagnosis for this admission?: Yes (7) Generalized weakness Is this a current diagnosis for this admission?: Yes (8) Hypertension Qualifiers: Hypertension type: essential hypertension Qualified Code(s): I10 - Essential (primary) hypertension Is this a current diagnosis for this admission?: Yes Plan: Well-controlled on current regimen. - Notes Notes: Thank you very much for this consultation. I will follow the patient with you. - Time Time Spent: Greater than 70 Minutes
--- NOTE | 2017-03-16 18:48 | PDOC PROGRESS REPORT ---
Subjective Progress Note for:: 03/16/17 Subjective:: Patient is an 86-year-old woman admitted with generalized weakness and loose stools for the last 2 weeks. No documented fever C. difficile negative. Urine culture done at admission of gram-negative rods. Blood culture one bottle with GPC. She had evidence of acute kidney injury with creatinine of 5.9 on presentation. Started on IVF with some improvement of her renal function. Seen and examined this am. No new complaints. Family updated. Physical Exam Vital Signs: Temp Pulse Resp BP Pulse Ox 97.3 F 57 L 18 101/49 L 98 03/16/17 11:40 03/16/17 15:48 03/16/17 11:40 03/16/17 15:48 03/16/17 15:48 Intake & Output 03/15/17 03/16/17 03/17/17 06:59 06:59 06:59 Intake Total 1040 3507 Output Total 300 Balance 740 3507 Weight 82.1 kg General appearance: PRESENT: no acute distress, well-developed, well-nourished Head exam: PRESENT: atraumatic, normocephalic Eye exam: PRESENT: conjunctiva pink, EOMI. ABSENT: scleral icterus Ear exam: PRESENT: normal external ear exam Mouth exam: PRESENT: dry mucosa, tongue midline Neck exam: ABSENT: carotid bruit, JVD, lymphadenopathy, thyromegaly Respiratory exam: PRESENT: clear to auscultation markie. ABSENT: rales, rhonchi, wheezes Cardiovascular exam: PRESENT: RRR. ABSENT: diastolic murmur, rubs, systolic murmur Pulses: PRESENT: normal dorsalis pedis pul Vascular exam: PRESENT: normal capillary refill GI/Abdominal exam: PRESENT: normal bowel sounds, soft. ABSENT: distended, guarding, mass, organolmegaly, rebound, tenderness Rectal exam: PRESENT: deferred Extremities exam: PRESENT: full ROM. ABSENT: calf tenderness, clubbing, pedal edema Neurological exam: PRESENT: alert, awake, oriented to person, oriented to place , oriented to time, oriented to situation, other - dysartrhic Psychiatric exam: PRESENT: appropriate affect, normal mood. ABSENT: homicidal ideation, suicidal ideation Skin exam: PRESENT: dry, warm. ABSENT: cyanosis, rash Results Laboratory Results: 03/16/17 06:30 03/16/17 06:30 03/16/17 03/16/17 06:30 06:30 WBC 6.7 RBC 3.80 Hgb 11.7 L D Hct 34.2 L MCV 90 MCH 30.7 MCHC 34.1 RDW 13.4 Plt Count 170 Seg Neutrophils % 65.4 Lymphocytes % 23.7 Monocytes % 7.4 Eosinophils % 2.3 Basophils % 1.2 Absolute Neutrophils 4.4 Absolute Lymphocytes 1.6 Absolute Monocytes 0.5 Absolute Eosinophils 0.2 Absolute Basophils 0.1 Sodium 144.3 Potassium 3.6 Chloride 115 H Carbon Dioxide 13 L Anion Gap 16 BUN 113 H Creatinine 4.65 H Est GFR ( Amer) 11 L Est GFR (Non-Af Amer) 9 L Glucose 88 Calcium 8.8 Magnesium 2.3 Impressions: Head CT 03/15/17 12:57 IMPRESSION: Involutional changes of aging with microvascular ischemia and no acute intracranial findings. EVIDENCE OF ACUTE STROKE: NO. Acute Abdomen Series 03/15/17 15:09 IMPRESSION: Somewhat limited study as noted above. A nodular density is identified in the left mid lung field and the possibility of a neoplastic process cannot be excluded. Other findings as noted above Abdomen/Pelvis CT 03/15/17 17:11 IMPRESSION: 2 cm calcified benign-appearing bone lesion in the inferior aspect of the posterior left 8th rib explains the radiographic appearance. No pulmonary mass. No acute findings in the abdomen or pelvis. Chest CT 03/15/17 17:11 IMPRESSION: 2 cm calcified benign-appearing bone lesion in the inferior aspect of the posterior left 8th rib explains the radiographic appearance. No pulmonary mass. No acute findings in the abdomen or pelvis. Assessment & Plan - Diagnosis (1) Generalized weakness Is this a current diagnosis for this admission?: Yes Plan: This is likely secondary to dehydration vs UTI Continue IV fluid and she has been given ceftriaxone Urine culture with gram-negative rods and blood culture with GPC Hoping it will be a contaminant (2) Urinary tract infection Qualifiers: Urinary tract infection type: acute cystitis Is this a current diagnosis for this admission?: Yes Plan: Urine culture with gram-negative rods Continue ceftriaxone and an follow-up urine culture for specificity (3) Acute renal failure Qualifiers: Acute renal failure type: with acute tubular necrosis Qualified Code(s): N17.0 - Acute kidney failure with tubular necrosis Is this a current diagnosis for this admission?: Yes Plan: Likely secondary to dehydration exacerbated by HCTZ and lisinopril Renal function with improvement CAT scan of the abdomen without evidence of hydronephrosis Continue IV fluid hydration Renally dosed all medication Strict intake and output Nephrology has been consulted (4) Hypertension Qualifiers: Hypertension type: essential hypertension Qualified Code(s): I10 - Essential (primary) hypertension Is this a current diagnosis for this admission?: Yes Plan: Holding home antihypertensive Continue IV fluid hydration (5) Dehydration Is this a current diagnosis for this admission?: Yes Plan: Likely in the setting of GI loss Continue IV fluid hydration (6) Metabolic acidosis Is this a current diagnosis for this admission?: Yes Plan: In the setting of GI losses On IV fluid hydration and bicarb supplements added (7) DVT prophylaxis Is this a current diagnosis for this admission?: Yes Plan: Heparin subQ
[2017-03-16 19:30] LABS: ANION GAP 17 (5-19); BLOOD UREA NITROGEN 98 mg/dL (7-20); CALCIUM 8.8 mg/dL (8.4-10.2); CARBON DIOXIDE 16 mmol/L (22-30); CHLORIDE 111 mmol/L (98-107); CREATININE RESULT 4.13 mg/dL (0.52-1.25); GLUCOSE 140 mg/dL (75-110); POTASSIUM 3.5 mmol/L (3.6-5.0); SODIUM 144.4 mmol/L (137-145)
[2017-03-16] MEDS: FENOFIBRATE NANOCRYSTALLIZED 145 MG TABLET PO SCH (22:47)
[2017-03-16] MEDS: DEXTROSE 5%-WATER 1000 ML 1,000 ML with SODIUM BICARBONATE 100 MEQ IV PRN ×2 (22:47)
[2017-03-16] MEDS: ATORVASTATIN CALCIUM 20 MG TABLET PO SCH (22:47)
[2017-03-16] MEDS ORDERED: POTASSIUM CHLORIDE 10 MEQ TABLET.SA PO ONE (23:50)
[2017-03-17] MEDS: HEPARIN SOD (PORCINE) 5,000 UNIT/ML 1 ML SYRINGE SUBCUT SCH ×3 (05:23→21:17)
[2017-03-17 06:06] LABS: ANION GAP 13 (5-19); BLOOD UREA NITROGEN 83 mg/dL (7-20); CALCIUM 8.2 mg/dL (8.4-10.2); CARBON DIOXIDE 16 mmol/L (22-30); CHLORIDE 111 mmol/L (98-107); CREATININE RESULT 3.23 mg/dL (0.52-1.25); GLUCOSE 102 mg/dL (75-110); POTASSIUM 3.4 mmol/L (3.6-5.0); SODIUM 140.1 mmol/L (137-145)
[2017-03-17] MEDS ORDERED: POTASSIUM CHLORIDE 10 MEQ TABLET.SA PO ONE ×3 (08:30→14:15)
[2017-03-17] MEDS: SODIUM BICARBONATE 650 MG TABLET PO SCH ×4 (12:12→22:59)
[2017-03-17] MEDS: SERTRALINE HCL 50 MG TABLET PO SCH (12:18)
[2017-03-17] MEDS: ASPIRIN 81 MG TABLET, ENT COATED PO SCH (12:19)
[2017-03-17] MEDS: DEXTROSE 5%-WATER 1000 ML 1,000 ML with SODIUM BICARBONATE 100 MEQ IV PRN ×4 (12:19→22:59)
--- NOTE | 2017-03-17 14:08 | PDOC PROGRESS REPORT ---
Subjective Progress Note for:: 03/17/17 Subjective:: Patient tells me that she is somewhat a little bit better but not a lot better. Her appetite is still fair to poor. She continues to have some loose stools. She is making urine. Physical Exam Vital Signs: Temp Pulse Resp BP Pulse Ox 98.1 F 58 L 18 117/50 L 99 03/17/17 12:00 03/17/17 12:00 03/17/17 12:00 03/17/17 12:00 03/17/17 12:00 Intake & Output 03/16/17 03/17/17 03/18/17 06:59 06:59 06:59 Intake Total 1040 3747 Output Total 300 300 Balance 740 3447 Weight 82.1 kg 82.1 kg Exam: General appearance: PRESENT: no acute distress, cooperative, well-developed, well-nourished Head exam: PRESENT: atraumatic, normocephalic Eye exam: PRESENT: conjunctiva slightly pale, PERRLA. ABSENT: scleral icterus Neck exam: ABSENT: JVD Respiratory exam: PRESENT: Diminished breath sounds. ABSENT: crackles, rales, rhonchi, unlabored, wheezes Cardiovascular exam: PRESENT: Regular rate rhythm -+S1, +S2. ABSENT: diastolic murmur, systolic murmur GI/Abdominal exam: PRESENT: normal bowel sounds, soft. ABSENT: guarding, mass, tenderness Extremities exam: ABSENT: No edema Neurological exam: PRESENT: alert, awake, oriented to person, place and time. Has some difficulty with articulation which was unchanged Skin exam: PRESENT: dry, warm, Results Laboratory Results: 03/16/17 06:30 03/17/17 04:30 03/16/17 03/17/17 18:45 04:30 Sodium 144.4 140.1 Potassium 3.5 L 3.4 L Chloride 111 H 111 H Carbon Dioxide 16 L 16 L Anion Gap 17 13 BUN 98 H 83 H Creatinine 4.13 H 3.23 H Est GFR ( Amer) 12 L 16 L Est GFR (Non-Af Amer) 10 L 14 L Glucose 140 H 102 Calcium 8.8 8.2 L Impressions: Head CT 03/15/17 12:57 IMPRESSION: Involutional changes of aging with microvascular ischemia and no acute intracranial findings. EVIDENCE OF ACUTE STROKE: NO. Acute Abdomen Series 03/15/17 15:09 IMPRESSION: Somewhat limited study as noted above. A nodular density is identified in the left mid lung field and the possibility of a neoplastic process cannot be excluded. Other findings as noted above Abdomen/Pelvis CT 03/15/17 17:11 IMPRESSION: 2 cm calcified benign-appearing bone lesion in the inferior aspect of the posterior left 8th rib explains the radiographic appearance. No pulmonary mass. No acute findings in the abdomen or pelvis. Chest CT 03/15/17 17:11 IMPRESSION: 2 cm calcified benign-appearing bone lesion in the inferior aspect of the posterior left 8th rib explains the radiographic appearance. No pulmonary mass. No acute findings in the abdomen or pelvis. Assessment & Plan - Diagnosis (1) Acute kidney injury superimposed on chronic kidney disease Is this a current diagnosis for this admission?: Yes Plan: Patient is nonoliguric and her urine does not show any microscopic hematuria with minimal proteinuria. This could be most likely secondary to acute prerenal azotemia secondary to volume depletion. Agree with holding the FERNANDO inhibitors and hydrochlorothiazide and avoid any other nephrotoxic agents. Agree with initial IV fluid hydration. Continue to monitor the patient's kidney function as well as intake and output daily. Correct electrolytes as necessary. At this point I do not think there is any urgent or emergent indication for renal replacement therapy. I will give the chance to her kidneys to recover spontaneously without any renal replacement therapy. However I did discuss the process of possible hemodialysis with the patient in case that her kidney function does not recover. She tells me that she does not really want to do hemodialysis but when asked her just for couple of treatments for acute worsening of kidney function he seems to be unable to answer. So I told her to think about it just in case we would need it but at this point she does not require to have it done. Patient's kidney function seems to be improving continuously with IV fluid hydration. We will continue the same. (2) Acute prerenal azotemia Is this a current diagnosis for this admission?: Yes (3) Metabolic acidosis Is this a current diagnosis for this admission?: Yes Plan: She has non-anion gap metabolic acidosis likely secondary to acute kidney injury. I will change her IV fluid to a sodium bicarbonate drip with 100 mEq of sodium bicarbonate in D5W to run at 100 mL an hour. May continue oral sodium bicarbonate at this point. Once the patient's bicarbonate is about 20 may discontinue the sodium bicarbonate drip and continue to oral sodium bicarbonate. (4) Hypokalemia Is this a current diagnosis for this admission?: Yes Plan: Due to the sodium bicarbonate drip. Replace potassium as necessary. (5) Urinary tract infection Qualifiers: Urinary tract infection type: acute cystitis Is this a current diagnosis for this admission?: Yes Plan: Continue IV antibiotics. (6) Dehydration Is this a current diagnosis for this admission?: Yes Plan: Continue IV fluid hydration. (7) Anemia Is this a current diagnosis for this admission?: Yes (8) Generalized weakness Is this a current diagnosis for this admission?: Yes (9) Hypertension Qualifiers: Hypertension type: essential hypertension Qualified Code(s): I10 - Essential (primary) hypertension Is this a current diagnosis for this admission?: Yes Plan: Well-controlled on current regimen. - Time Time with patient: 15-25 minutes
[2017-03-17] MEDS: ONDANSETRON HCL INJ/PF 4 MG/2 ML SDV IV PRN (17:43)
[2017-03-17] MEDS: CIPROFLOXACIN HCL 500 MG TABLET PO SCH (21:16)
[2017-03-17] MEDS: ATORVASTATIN CALCIUM 20 MG TABLET PO SCH (21:17)
[2017-03-17] MEDS: FENOFIBRATE NANOCRYSTALLIZED 145 MG TABLET PO SCH (21:17)
[2017-03-17] MEDS: DIPHENHYDRAMINE HCL 50 MG CAPSULE PO PRN (21:17)
[2017-03-18] MEDS: HEPARIN SOD (PORCINE) 5,000 UNIT/ML 1 ML SYRINGE SUBCUT SCH ×3 (05:40→21:47)
[2017-03-18 06:12] LABS: ABSOLUTE EOSINOPHILS # (AUTO) 0.3 10^3/uL (0.0-0.6); ABSOLUTE LYMPHOCYTES (AUTO) 1.9 10^3/uL (0.5-4.7); ABSOLUTE MONOCYTES (AUTO) 0.6 10^3/uL (0.1-1.4); ABSOLUTE NEUT (AUTO) 3.7 10^3/uL (1.7-8.2); BASOPHILS % (AUTO) 0.6 % (0-2); EOSINOPHILS % (AUTO) 4.2 % (0-6); HEMATOCRIT 29.7 % (36.0-47.0); HEMOGLOBIN 10.3 g/dL (12.0-15.5); HGB HCT DIFFERENCE 1.2; LYMPHOCYTES % (AUTO) 28.9 % (13-45); MEAN CORPUSCULAR HEMOGLOBIN 30.7 pg (27.0-33.4); MEAN CORPUSCULAR HGB CONC 34.7 g/dL (32.0-36.0); MEAN CORPUSCULAR VOLUME 89 fl (80-97); MONOCYTES % (AUTO) 8.5 % (3-13); RED BLOOD COUNT 3.35 10^6/uL (3.72-5.28); RED CELL DISTRIBUTION WIDTH 13.2 % (11.5-14.0); SEGMENTED NEUTROPHILS % (AUTO) 57.8 % (42-78); WHITE BLOOD COUNT 6.5 10^3/uL (4.0-10.5)
[2017-03-18 06:25] LABS: ANION GAP 9 (5-19); BLOOD UREA NITROGEN 63 mg/dL (7-20); CALCIUM 8.3 mg/dL (8.4-10.2); CARBON DIOXIDE 26 mmol/L (22-30); CHLORIDE 108 mmol/L (98-107); GLUCOSE 103 mg/dL (75-110); POTASSIUM 3.5 mmol/L (3.6-5.0)
[2017-03-18] MEDS ORDERED: POTASSIUM CHLORIDE 10 MEQ TABLET.SA PO ONE (07:57)
[2017-03-18] MEDS: SODIUM BICARBONATE 650 MG TABLET PO SCH ×3 (10:25→17:36)
[2017-03-18] MEDS: LACTOBACILLUS ACIDOPHILUS 250 MG TAB PO SCH ×2 (10:25→17:36)
[2017-03-18] MEDS: RINGERS SOLUTION,LACTATED 1,000 ML IV PRN (10:25)
[2017-03-18] MEDS: ASPIRIN 81 MG TABLET, ENT COATED PO SCH (10:25)
[2017-03-18] MEDS: SERTRALINE HCL 50 MG TABLET PO SCH (10:25)
[2017-03-18] MEDS: CIPROFLOXACIN HCL 500 MG TABLET PO SCH ×2 (10:25→21:45)
[2017-03-18] MEDS: ATORVASTATIN CALCIUM 20 MG TABLET PO SCH (21:45)
[2017-03-18] MEDS: DIPHENHYDRAMINE HCL 50 MG CAPSULE PO PRN (21:45)
[2017-03-18] MEDS: FENOFIBRATE NANOCRYSTALLIZED 145 MG TABLET PO SCH (21:45)
[2017-03-19] MEDS: HEPARIN SOD (PORCINE) 5,000 UNIT/ML 1 ML SYRINGE SUBCUT SCH ×3 (05:58→21:59)
[2017-03-19 06:23] LABS: ANION GAP 9 (5-19); CALCIUM 8.6 mg/dL (8.4-10.2); CARBON DIOXIDE 27 mmol/L (22-30); CHLORIDE 106 mmol/L (98-107); CREATININE RESULT 2.18 mg/dL (0.52-1.25); GLUCOSE 83 mg/dL (75-110); POTASSIUM 4.1 mmol/L (3.6-5.0); SODIUM 141.9 mmol/L (137-145)
[2017-03-19 06:26] LABS: BLOOD UREA NITROGEN 43 mg/dL (7-20)
[2017-03-19] MEDS: SERTRALINE HCL 50 MG TABLET PO SCH (10:11)
[2017-03-19] MEDS: ASPIRIN 81 MG TABLET, ENT COATED PO SCH (10:12)
[2017-03-19] MEDS: CIPROFLOXACIN HCL 500 MG TABLET PO SCH ×2 (10:12→21:59)
[2017-03-19] MEDS: SODIUM BICARBONATE 650 MG TABLET PO SCH ×2 (10:14→17:16)
[2017-03-19] MEDS: LACTOBACILLUS ACIDOPHILUS 250 MG TAB PO SCH ×2 (10:14→17:16)
--- NOTE | 2017-03-19 13:53 | PDOC PROGRESS REPORT ---
Subjective Progress Note for:: 03/19/17 Subjective:: Patient is an 86-year-old woman admitted on 03/15/2017 with complaints of generalized weakness, loose stools and decreased appetite for the last 2 weeks. No documented fever and C. difficile negative. Urine culture done at admission of Klebsiella blood culture with S epidermidis. She had evidence of acute kidney injury with creatinine of 5.9 on presentation. Started on IVF with continued improvement of her renal function. Creatinine 2.2 and BUN 63 today. She has been seen by nephrology. PT consulted this admission and she has been working with PT. Seen and examined this am, she reports feeling better and she slept a bit more last night. She has not had no loose stools since yesterday until during round. No reports of abdominal pain. She was started on probiotics yesterday. No reports of fevers, chills. She continues to report feeling better since admitted. Physical Exam Vital Signs: Temp Pulse Resp BP Pulse Ox 97.5 F 61 18 143/49 H 96 03/19/17 12:02 03/19/17 12:02 03/19/17 12:02 03/19/17 12:02 03/19/17 12:02 Intake & Output 03/18/17 03/19/17 03/20/17 06:59 06:59 06:59 Intake Total 1560 2870 Output Total 506 800 Balance 1054 2070 Weight 82.3 kg 88.4 kg General appearance: PRESENT: no acute distress, other - dysarthric Head exam: PRESENT: atraumatic, normocephalic Eye exam: PRESENT: EOMI Neck exam: PRESENT: full ROM. ABSENT: JVD Respiratory exam: PRESENT: clear to auscultation markie, symmetrical, unlabored. ABSENT: accessory muscle use Cardiovascular exam: PRESENT: RRR, +S1, +S2. ABSENT: clicks GI/Abdominal exam: PRESENT: normal bowel sounds, soft. ABSENT: tenderness Results Laboratory Results: 03/18/17 05:03 03/19/17 04:48 03/19/17 04:48 Sodium 141.9 Potassium 4.1 Chloride 106 Carbon Dioxide 27 Anion Gap 9 BUN 43 H D Creatinine 2.18 H Est GFR ( Amer) 26 L Est GFR (Non-Af Amer) 21 L Glucose 83 Calcium 8.6 03/16/17 03:13 Stool - Stool - Final 03/16/17 03:13 Stool - Stool Stool Culture - Final C.albicans/C.dubliniensis Impressions: Head CT 03/15/17 12:57 IMPRESSION: Involutional changes of aging with microvascular ischemia and no acute intracranial findings. EVIDENCE OF ACUTE STROKE: NO. Acute Abdomen Series 03/15/17 15:09 IMPRESSION: Somewhat limited study as noted above. A nodular density is identified in the left mid lung field and the possibility of a neoplastic process cannot be excluded. Other findings as noted above Abdomen/Pelvis CT 03/15/17 17:11 IMPRESSION: 2 cm calcified benign-appearing bone lesion in the inferior aspect of the posterior left 8th rib explains the radiographic appearance. No pulmonary mass. No acute findings in the abdomen or pelvis. Chest CT 03/15/17 17:11 IMPRESSION: 2 cm calcified benign-appearing bone lesion in the inferior aspect of the posterior left 8th rib explains the radiographic appearance. No pulmonary mass. No acute findings in the abdomen or pelvis. Assessment & Plan - Diagnosis (1) Acute renal failure Qualifiers: Acute renal failure type: with acute tubular necrosis Qualified Code(s): N17.0 - Acute kidney failure with tubular necrosis Is this a current diagnosis for this admission?: Yes Plan: Likely secondary to dehydration exacerbated by HCTZ and lisinopril Renal function continues to improve and creatinine 2.2 and BUN 43 CAT scan of the abdomen without evidence of hydronephrosis Continue IV fluid hydration and started on bicarb drips by renal Renally dosed all medication Strict intake and output Nephrology has been consulted and input appreciated (2) Generalized weakness Is this a current diagnosis for this admission?: Yes Plan: She continues to improve Continue physical therapy (3) Hypertension Qualifiers: Hypertension type: essential hypertension Qualified Code(s): I10 - Essential (primary) hypertension Is this a current diagnosis for this admission?: Yes Plan: BP remains acceptable Continue to hold home antihypertensive medications (5) Klebsiella cystitis Is this a current diagnosis for this admission?: Yes Plan: Currently on PO Cipro until 03/21/17 (6) Metabolic acidosis Is this a current diagnosis for this admission?: Yes Plan: Continue PO supplements (7) Hypokalemia Is this a current diagnosis for this admission?: Yes Plan: Resolved (8) Diarrhea Is this a current diagnosis for this admission?: Yes Plan: C. Difficile negative Stool culture Desiree and unlikely pathogenic Lactobacillus added and will also add cholestyramine Re-assess and may need GI evaluation (9) Positive blood culture Is this a current diagnosis for this admission?: Yes Plan: Blood culture with staph epidermidis and this is likely a contaminant (10) DVT prophylaxis Is this a current diagnosis for this admission?: Yes Plan: Heparin subQ - Time Time Spent with patient: 25-34 minutes
[2017-03-19] MEDS: RINGERS SOLUTION,LACTATED 1,000 ML IV PRN (14:21)
[2017-03-19] MEDS: CHOLESTYRAMINE/ASPARTAME 4 GM PACKET PO SCH ×2 (17:17→22:00)
[2017-03-19 18:06] LABS: ANION GAP 9 (5-19); BLOOD UREA NITROGEN 39 mg/dL (7-20); CALCIUM 9.3 mg/dL (8.4-10.2); CARBON DIOXIDE 27 mmol/L (22-30); CHLORIDE 109 mmol/L (98-107); CREATININE RESULT 2.28 mg/dL (0.52-1.25); GLUCOSE 128 mg/dL (75-110); SODIUM 144.8 mmol/L (137-145)
[2017-03-19 18:14] LABS: POTASSIUM 5.3 mmol/L (3.6-5.0)
[2017-03-19] MEDS: ATORVASTATIN CALCIUM 20 MG TABLET PO SCH (21:59)
[2017-03-19] MEDS: FENOFIBRATE NANOCRYSTALLIZED 145 MG TABLET PO SCH (21:59)
[2017-03-19] MEDS: NORMAL SALINE 1000 ML 1,000 ML IV PRN (22:19)
[2017-03-20] MEDS: DIPHENHYDRAMINE HCL 50 MG CAPSULE PO PRN (00:25)
[2017-03-20] MEDS: HEPARIN SOD (PORCINE) 5,000 UNIT/ML 1 ML SYRINGE SUBCUT SCH ×3 (05:47→21:20)
[2017-03-20] MEDS: NORMAL SALINE 1000 ML 1,000 ML IV PRN ×2 (05:48→13:26)
[2017-03-20 07:37] LABS: ANION GAP 7 (5-19); BLOOD UREA NITROGEN 30 mg/dL (7-20); CALCIUM 8.4 mg/dL (8.4-10.2); CARBON DIOXIDE 27 mmol/L (22-30); CHLORIDE 110 mmol/L (98-107); CREATININE RESULT 2.13 mg/dL (0.52-1.25); GLUCOSE 91 mg/dL (75-110); SODIUM 144.4 mmol/L (137-145)
[2017-03-20 07:46] LABS: POTASSIUM 4.2 mmol/L (3.6-5.0)
[2017-03-20] MEDS: CHOLESTYRAMINE/ASPARTAME 4 GM PACKET PO SCH ×4 (09:18→21:17)
[2017-03-20] MEDS: LACTOBACILLUS ACIDOPHILUS 250 MG TAB PO SCH ×2 (09:20→16:53)
[2017-03-20] MEDS: ASPIRIN 81 MG TABLET, ENT COATED PO SCH (09:20)
[2017-03-20] MEDS: CIPROFLOXACIN HCL 500 MG TABLET PO SCH ×2 (09:20→21:16)
[2017-03-20] MEDS: SERTRALINE HCL 50 MG TABLET PO SCH (09:21)
[2017-03-20] MEDS: SODIUM BICARBONATE 650 MG TABLET PO SCH ×2 (09:21→16:53)
--- NOTE | 2017-03-20 12:22 | PDOC PROGRESS REPORT ---
Subjective Progress Note for:: 03/20/17 Subjective:: Patient is an 86-year-old woman admitted on 03/15/2017 with complaints of generalized weakness, loose stools and decreased appetite for the last 2 weeks. No documented fever and C. difficile negative. Urine culture done at admission of Klebsiella blood culture with S epidermidis. She had evidence of acute kidney injury with creatinine of 5.9 on presentation. Started on IVF with continued improvement of her renal function. Creatinine 2.21and BUN 30 today. She has been seen by nephrology. PT consulted this admission and she has been working with PT. Seen and examined this am, she was found sitting on chair and appetite poor, barely touched her breakfast. Last episode of diarrhea yesterday. Still loose but not as frequent. No complaints of pain. She feels weak but better since admission. Physical Exam Vital Signs: Temp Pulse Resp BP Pulse Ox 98.2 F 66 19 142/55 H 96 03/20/17 07:42 03/20/17 07:42 03/20/17 07:42 03/20/17 07:42 03/20/17 07:42 Intake & Output 03/19/17 03/20/17 03/21/17 06:59 06:59 06:59 Intake Total 2870 3970 Output Total 800 2250 Balance 2070 1720 Weight 88.4 kg 88.4 kg General appearance: PRESENT: no acute distress, other - seems weak Head exam: PRESENT: atraumatic, normocephalic Eye exam: PRESENT: EOMI Mouth exam: PRESENT: moist, neck supple, tongue midline Neck exam: PRESENT: full ROM. ABSENT: JVD Respiratory exam: PRESENT: clear to auscultation markie, symmetrical, unlabored. ABSENT: accessory muscle use Cardiovascular exam: PRESENT: RRR, +S1, +S2. ABSENT: tachycardia Vascular exam: PRESENT: normal capillary refill GI/Abdominal exam: PRESENT: normal bowel sounds, soft. ABSENT: distended, tenderness Rectal exam: PRESENT: deferred Extremities exam: PRESENT: full ROM. ABSENT: pedal edema Musculoskeletal exam: PRESENT: full ROM Neurological exam: PRESENT: alert, awake, oriented to person, oriented to place , oriented to time Psychiatric exam: PRESENT: appropriate affect, normal mood Skin exam: PRESENT: dry, intact, warm Results Laboratory Results: 03/18/17 05:03 03/20/17 06:26 03/19/17 03/20/17 17:30 06:26 Sodium 144.8 144.4 Potassium 5.3 H D 4.2 D Chloride 109 H 110 H Carbon Dioxide 27 27 Anion Gap 9 7 BUN 39 H 30 H Creatinine 2.28 H 2.13 H Est GFR ( Amer) 25 L 27 L Est GFR (Non-Af Amer) 20 L 22 L Glucose 128 H 91 Calcium 9.3 8.4 03/16/17 03:13 Stool - Stool - Final 03/16/17 03:13 Stool - Stool Stool Culture - Final C.albicans/C.dubliniensis Impressions: Head CT 03/15/17 12:57 IMPRESSION: Involutional changes of aging with microvascular ischemia and no acute intracranial findings. EVIDENCE OF ACUTE STROKE: NO. Acute Abdomen Series 03/15/17 15:09 IMPRESSION: Somewhat limited study as noted above. A nodular density is identified in the left mid lung field and the possibility of a neoplastic process cannot be excluded. Other findings as noted above Abdomen/Pelvis CT 03/15/17 17:11 IMPRESSION: 2 cm calcified benign-appearing bone lesion in the inferior aspect of the posterior left 8th rib explains the radiographic appearance. No pulmonary mass. No acute findings in the abdomen or pelvis. Chest CT 03/15/17 17:11 IMPRESSION: 2 cm calcified benign-appearing bone lesion in the inferior aspect of the posterior left 8th rib explains the radiographic appearance. No pulmonary mass. No acute findings in the abdomen or pelvis. Assessment & Plan - Diagnosis (1) Acute renal failure Qualifiers: Acute renal failure type: with acute tubular necrosis Qualified Code(s): N17.0 - Acute kidney failure with tubular necrosis Is this a current diagnosis for this admission?: Yes Plan: Likely secondary to dehydration exacerbated by HCTZ and lisinopril Renal function continues to improve and creatinine 2.1 and BUN 30 CAT scan of the abdomen without evidence of hydronephrosis Continue IV fluid hydration and strict intake and output Renally dosed all medication Nephrology has been consulted and input appreciated (2) Generalized weakness Is this a current diagnosis for this admission?: Yes Plan: She continues to improve Continue physical therapy She likely will need rehab when medically ready (3) Hypertension Qualifiers: Hypertension type: essential hypertension Qualified Code(s): I10 - Essential (primary) hypertension Is this a current diagnosis for this admission?: Yes Plan: BP remains acceptable Continue to hold home antihypertensive medications (4) Dehydration Is this a current diagnosis for this admission?: Yes Plan: Continue IV fluid hydration Encourage good p.o. intake as well (5) Klebsiella cystitis Is this a current diagnosis for this admission?: Yes Plan: Currently on PO Cipro until 03/21/17 (6) Metabolic acidosis Is this a current diagnosis for this admission?: Yes Plan: Continue PO supplements and dose decreased (7) Hypokalemia Is this a current diagnosis for this admission?: Yes Plan: Resolved (8) Diarrhea Is this a current diagnosis for this admission?: Yes Plan: Seems to be slowing down C. Difficile negative Stool culture Desiree and unlikely pathogenic On Lactobacillus and cholestyramine Re-assess and may need GI evaluation (9) Positive blood culture Is this a current diagnosis for this admission?: Yes Plan: Blood culture with staph epidermidis and this is likely a contaminant (10) DVT prophylaxis Is this a current diagnosis for this admission?: Yes Plan: Heparin subQ - Time Time Spent with patient: 25-34 minutes Within: Other
--- NOTE | 2017-03-20 18:37 | PDOC PROGRESS REPORT ---
Subjective Progress Note for:: 03/20/17 Subjective:: Patient was tearful when I entered the room because she is feeling sad that she might need to go to the [place] [facility]. She said her diarrhea is less frequent and seems to be improving. Her appetite is still poor and she is just eating soups. She is continuously having physical therapy. Physical Exam Vital Signs: Temp Pulse Resp BP Pulse Ox 98.3 F 81 16 145/77 H 99 03/20/17 15:25 03/20/17 15:25 03/20/17 15:25 03/20/17 15:25 03/20/17 15:25 Intake & Output 03/19/17 03/20/17 03/21/17 06:59 06:59 06:59 Intake Total 2870 3970 1500 Output Total 800 2250 Balance 2070 1720 1500 Weight 88.4 kg 88.4 kg Exam: General appearance: PRESENT: no acute distress, cooperative, well-developed, well-nourished Head exam: PRESENT: atraumatic, normocephalic Eye exam: PRESENT: conjunctiva pink, PERRLA. ABSENT: scleral icterus Neck exam: ABSENT: JVD Respiratory exam: PRESENT: Diminished l breath sounds. ABSENT: crackles, rales , rhonchi, unlabored, wheezes Cardiovascular exam: PRESENT: Regular rate rhythm -+S1, +S2. ABSENT: diastolic murmur, systolic murmur GI/Abdominal exam: PRESENT: normal bowel sounds, soft. ABSENT: guarding, mass, tenderness Extremities exam: ABSENT: No edema Neurological exam: PRESENT: alert, awake, oriented to person, place and time. Skin exam: PRESENT: dry, warm, Results Laboratory Results: 03/18/17 05:03 03/20/17 06:26 03/20/17 06:26 Sodium 144.4 Potassium 4.2 D Chloride 110 H Carbon Dioxide 27 Anion Gap 7 BUN 30 H Creatinine 2.13 H Est GFR ( Amer) 27 L Est GFR (Non-Af Amer) 22 L Glucose 91 Calcium 8.4 Impressions: Head CT 03/15/17 12:57 IMPRESSION: Involutional changes of aging with microvascular ischemia and no acute intracranial findings. EVIDENCE OF ACUTE STROKE: NO. Acute Abdomen Series 03/15/17 15:09 IMPRESSION: Somewhat limited study as noted above. A nodular density is identified in the left mid lung field and the possibility of a neoplastic process cannot be excluded. Other findings as noted above Abdomen/Pelvis CT 03/15/17 17:11 IMPRESSION: 2 cm calcified benign-appearing bone lesion in the inferior aspect of the posterior left 8th rib explains the radiographic appearance. No pulmonary mass. No acute findings in the abdomen or pelvis. Chest CT 03/15/17 17:11 IMPRESSION: 2 cm calcified benign-appearing bone lesion in the inferior aspect of the posterior left 8th rib explains the radiographic appearance. No pulmonary mass. No acute findings in the abdomen or pelvis. Assessment & Plan - Diagnosis (1) Acute kidney injury superimposed on chronic kidney disease Is this a current diagnosis for this admission?: Yes Plan: Patient is nonoliguric and her urine does not show any microscopic hematuria with minimal proteinuria. This could be most likely secondary to acute prerenal azotemia secondary to volume depletion. Agree with holding the FERNANDO inhibitors and hydrochlorothiazide and avoid any other nephrotoxic agents. Agree with initial IV fluid hydration. Continue to monitor the patient's kidney function as well as intake and output daily. Correct electrolytes as necessary. Patient's kidney function seems to be improving continuously with IV fluid hydration. Continue current management. I expect continuous improvement of her kidney function moving forward. (2) Acute prerenal azotemia Is this a current diagnosis for this admission?: Yes (3) Metabolic acidosis Is this a current diagnosis for this admission?: Yes Plan: Resolved. Decrease sodium bicarbonate to just once a day. (4) Hypokalemia Is this a current diagnosis for this admission?: Yes Plan: Resolved. This is initially due to the sodium bicarbonate drip. She had an episode of mild hyperkalemia over the weekend likely secondary to do LR IV fluid solution. Now is currently within normal limits. (5) Urinary tract infection Qualifiers: Urinary tract infection type: acute cystitis Is this a current diagnosis for this admission?: Yes Plan: Continue antibiotics. Due to Klebsiella pneumoniae. (6) Dehydration Is this a current diagnosis for this admission?: Yes Plan: Continue IV fluid hydration. Resolving. (7) Anemia Is this a current diagnosis for this admission?: Yes (8) Generalized weakness Is this a current diagnosis for this admission?: Yes (9) Hypertension Qualifiers: Hypertension type: essential hypertension Qualified Code(s): I10 - Essential (primary) hypertension Is this a current diagnosis for this admission?: Yes Plan: Well-controlled on current regimen. - Notes Notes: I expect continued improvement of kidney function in this patient. I will sign off at this time. - Time Time with patient: 15-25 minutes
[2017-03-20] MEDS: ATORVASTATIN CALCIUM 20 MG TABLET PO SCH (21:17)
[2017-03-20] MEDS: FENOFIBRATE NANOCRYSTALLIZED 145 MG TABLET PO SCH (21:17)
[2017-03-21] MEDS: HEPARIN SOD (PORCINE) 5,000 UNIT/ML 1 ML SYRINGE SUBCUT SCH ×3 (05:02→22:46)
[2017-03-21 07:27] LABS: ANION GAP 9 (5-19); BLOOD UREA NITROGEN 20 mg/dL (7-20); CARBON DIOXIDE 20 mmol/L (22-30); CHLORIDE 114 mmol/L (98-107); CREATININE RESULT 1.86 mg/dL (0.52-1.25); GLUCOSE 87 mg/dL (75-110); MAGNESIUM 1.4 mg/dL (1.6-2.3); POTASSIUM 4.4 mmol/L (3.6-5.0); SODIUM 143.3 mmol/L (137-145)
[2017-03-21] MEDS: CHOLESTYRAMINE/ASPARTAME 4 GM PACKET PO SCH ×4 (09:39→22:47)
[2017-03-21] MEDS: CIPROFLOXACIN HCL 500 MG TABLET PO SCH (09:41)
[2017-03-21] MEDS: SERTRALINE HCL 50 MG TABLET PO SCH (09:41)
[2017-03-21] MEDS: LACTOBACILLUS ACIDOPHILUS 250 MG TAB PO SCH ×2 (09:42→17:19)
[2017-03-21] MEDS: SODIUM BICARBONATE 650 MG TABLET PO SCH (09:42)
[2017-03-21] MEDS: ASPIRIN 81 MG TABLET, ENT COATED PO SCH (09:42)
--- NOTE | 2017-03-21 14:53 | PDOC PROGRESS REPORT ---
Subjective Subjective:: 86-year-old female who presented with poor oral intake and diarrhea and admitted for acute renal failure. Doing much better today. Still with diarrhea , but improving. Denies abdominal pain, no nausea or vomiting at this time, no fever or chills. Appetite remains poor but improved. Daughter at bedside. No chest pain or shortness of breath or palpitations. Physical Exam Vital Signs: Temp Pulse Resp BP Pulse Ox 97.7 F 78 18 145/72 H 99 03/21/17 11:42 03/21/17 11:42 03/21/17 11:42 03/21/17 11:42 03/21/17 11:42 Intake & Output 03/20/17 03/21/17 03/22/17 06:59 06:59 06:59 Intake Total 3970 2990 Output Total 2250 1000 Balance 1720 1989 Weight 88.4 kg 88.4 kg Exam: GENERAL: Well-developed, no acute distress HEENT: Oral mucosa moist CARDIOVASCULAR: RRR, normal S1-S2 LUNGS: CTA bilaterally ABDOMEN: Soft, NT, NL bowel sounds EXTREMITIES: No edema, clubbing, cyanosis NEUROLOGICAL: Alert, oriented x 3 Results Laboratory Results: 03/18/17 05:03 03/21/17 05:56 03/21/17 05:56 Sodium 143.3 Potassium 4.4 Chloride 114 H Carbon Dioxide 20 L Anion Gap 9 BUN 20 Creatinine 1.86 H Est GFR ( Amer) 31 L Est GFR (Non-Af Amer) 26 L Glucose 87 Calcium 8.0 L Magnesium 1.4 L 03/15/17 21:19 Blood Blood Culture - Final NO GROWTH IN 5 DAYS Impressions: Head CT 03/15/17 12:57 IMPRESSION: Involutional changes of aging with microvascular ischemia and no acute intracranial findings. EVIDENCE OF ACUTE STROKE: NO. Acute Abdomen Series 03/15/17 15:09 IMPRESSION: Somewhat limited study as noted above. A nodular density is identified in the left mid lung field and the possibility of a neoplastic process cannot be excluded. Other findings as noted above Abdomen/Pelvis CT 03/15/17 17:11 IMPRESSION: 2 cm calcified benign-appearing bone lesion in the inferior aspect of the posterior left 8th rib explains the radiographic appearance. No pulmonary mass. No acute findings in the abdomen or pelvis. Chest CT 03/15/17 17:11 IMPRESSION: 2 cm calcified benign-appearing bone lesion in the inferior aspect of the posterior left 8th rib explains the radiographic appearance. No pulmonary mass. No acute findings in the abdomen or pelvis. Assessment & Plan - Plan Summary Plan Summary: Assessment/plan: (1) Acute renal failure Likely secondary to dehydration exacerbated by HCTZ and lisinopril Renal function continues to improve CAT scan of the abdomen without evidence of hydronephrosis Continue IV fluid hydration for now Nephrology following patient (2) Generalized weakness She continues to improve Continue physical therapy She may need rehab --PT/OT consult (3) Hypertension BP remains acceptable Continue to hold home antihypertensive medications (4) Dehydration Continue IV fluid hydration Encourage good p.o. intake as well (5) Klebsiella cystitis Currently on PO Cipro until today, 03/21/17 (6) Metabolic acidosis Continue sodium bicarb per nephrology (7) Hypokalemia Resolved (8) Diarrhea This is improving. Stool negative for C. Difficile Stool culture Desiree albicans and Desiree dubliniensis On Lactobacillus and cholestyramine May need GI evaluation/referral (9) Positive blood culture Blood culture with staph epidermidis and this is likely a contaminant Will order recheck blood cultures (10) DVT prophylaxis Heparin subQ
[2017-03-21] MEDS: ATORVASTATIN CALCIUM 20 MG TABLET PO SCH (22:46)
[2017-03-21] MEDS: FENOFIBRATE NANOCRYSTALLIZED 145 MG TABLET PO SCH (22:47)
[2017-03-22] MEDS: HEPARIN SOD (PORCINE) 5,000 UNIT/ML 1 ML SYRINGE SUBCUT SCH ×3 (05:00→21:48)
[2017-03-22 06:30] LABS: ABSOLUTE BASOPHILS # (AUTO) 0.1 10^3/uL (0.0-0.2); ABSOLUTE EOSINOPHILS # (AUTO) 0.4 10^3/uL (0.0-0.6); ABSOLUTE LYMPHOCYTES (AUTO) 1.4 10^3/uL (0.5-4.7); ABSOLUTE MONOCYTES (AUTO) 0.5 10^3/uL (0.1-1.4); ABSOLUTE NEUT (AUTO) 4.6 10^3/uL (1.7-8.2); BASOPHILS % (AUTO) 0.9 % (0-2); EOSINOPHILS % (AUTO) 6.2 % (0-6); HEMATOCRIT 29.8 % (36.0-47.0); HEMOGLOBIN 10.3 g/dL (12.0-15.5); HGB HCT DIFFERENCE 1.1; LYMPHOCYTES % (AUTO) 19.4 % (13-45); MEAN CORPUSCULAR HEMOGLOBIN 31.3 pg (27.0-33.4); MEAN CORPUSCULAR HGB CONC 34.6 g/dL (32.0-36.0); MEAN CORPUSCULAR VOLUME 90 fl (80-97); MONOCYTES % (AUTO) 7.2 % (3-13); RED CELL DISTRIBUTION WIDTH 13.5 % (11.5-14.0); SEGMENTED NEUTROPHILS % (AUTO) 66.3 % (42-78)
[2017-03-22 06:41] LABS: ANION GAP 9 (5-19); BLOOD UREA NITROGEN 14 mg/dL (7-20); CARBON DIOXIDE 18 mmol/L (22-30); CHLORIDE 117 mmol/L (98-107); CREATININE RESULT 1.83 mg/dL (0.52-1.25); GLUCOSE 84 mg/dL (75-110); POTASSIUM 4.6 mmol/L (3.6-5.0); SODIUM 144.3 mmol/L (137-145)
[2017-03-22] MEDS ORDERED: ERGOCALCIFEROL (VITAMIN D2) 50000 UNIT (1.25 MG) CAPSULE PO SCH (10:00)
[2017-03-22] MEDS: LACTOBACILLUS ACIDOPHILUS 250 MG TAB PO SCH ×2 (11:15→17:15)
[2017-03-22] MEDS: ASPIRIN 81 MG TABLET, ENT COATED PO SCH (11:16)
[2017-03-22] MEDS: SODIUM BICARBONATE 650 MG TABLET PO SCH (11:16)
[2017-03-22] MEDS: SERTRALINE HCL 50 MG TABLET PO SCH (11:16)
[2017-03-22] MEDS: CHOLESTYRAMINE/ASPARTAME 4 GM PACKET PO SCH ×4 (11:20→21:48)
[2017-03-22] MEDS: NORMAL SALINE 1000 ML 1,000 ML IV PRN (12:10)
[2017-03-22] MEDS ORDERED: HYDRALAZINE HCL INJ/PF 20 MG/1 ML SDV IV PRN (13:45)
--- NOTE | 2017-03-22 13:47 | PDOC PROGRESS REPORT ---
Subjective Progress Note for:: 03/22/17 Subjective:: This is follow-up visit for an 86-year-old female who was admitted with acute kidney failure and diarrhea. She was found to have a urinary tract infection due to Klebsiella as well as generalized weakness. The patient continues to complain of generalized weakness but states that her nausea, vomiting has resolved. Her diarrhea is significantly improved. She denies any fever or chills. Denies chest pain shortness of breath or palpitations. She admits to ambulating in hallway using her walker and the physical therapist. Physical Exam Vital Signs: Temp Pulse Resp BP Pulse Ox 97.7 F 75 20 151/69 H 99 03/22/17 12:18 03/22/17 12:18 03/22/17 12:18 03/22/17 12:18 03/22/17 12:18 Intake & Output 03/21/17 03/22/17 03/23/17 06:59 06:59 06:59 Intake Total 2990 2529 Output Total 1000 700 Balance 1989 1828 Weight 88.4 kg 88.4 kg General appearance: PRESENT: no acute distress, cooperative, obese, other - sitting by bedside Head exam: PRESENT: atraumatic, normocephalic Respiratory exam: PRESENT: clear to auscultation markie, symmetrical, unlabored Cardiovascular exam: PRESENT: RRR, +S1, +S2 GI/Abdominal exam: PRESENT: normal bowel sounds, soft. ABSENT: ascites, diminished bowel sounds, distended, firm, guarding, hernia, hyperactive bowel sounds, hypoactive bowel sounds, mass, Tucker's sign, organolmegaly, rebound, rigid, tenderness, other Extremities exam: PRESENT: full ROM, pedal edema Musculoskeletal exam: PRESENT: ambulatory, full ROM Neurological exam: PRESENT: awake, oriented to person, oriented to place, oriented to time, oriented to situation, CN II-XII grossly intact Psychiatric exam: PRESENT: anxious Results Laboratory Results: 03/22/17 05:18 03/22/17 05:18 03/22/17 03/22/17 05:18 05:18 WBC 7.0 RBC 3.30 L Hgb 10.3 L Hct 29.8 L MCV 90 MCH 31.3 MCHC 34.6 RDW 13.5 Plt Count 152 Seg Neutrophils % 66.3 Lymphocytes % 19.4 Monocytes % 7.2 Eosinophils % 6.2 H Basophils % 0.9 Absolute Neutrophils 4.6 Absolute Lymphocytes 1.4 Absolute Monocytes 0.5 Absolute Eosinophils 0.4 Absolute Basophils 0.1 Sodium 144.3 Potassium 4.6 Chloride 117 H Carbon Dioxide 18 L Anion Gap 9 BUN 14 Creatinine 1.83 H Est GFR ( Amer) 32 L Est GFR (Non-Af Amer) 26 L Glucose 84 Calcium 8.0 L Impressions: Head CT 03/15/17 12:57 IMPRESSION: Involutional changes of aging with microvascular ischemia and no acute intracranial findings. EVIDENCE OF ACUTE STROKE: NO. Acute Abdomen Series 03/15/17 15:09 IMPRESSION: Somewhat limited study as noted above. A nodular density is identified in the left mid lung field and the possibility of a neoplastic process cannot be excluded. Other findings as noted above Abdomen/Pelvis CT 03/15/17 17:11 IMPRESSION: 2 cm calcified benign-appearing bone lesion in the inferior aspect of the posterior left 8th rib explains the radiographic appearance. No pulmonary mass. No acute findings in the abdomen or pelvis. Chest CT 03/15/17 17:11 IMPRESSION: 2 cm calcified benign-appearing bone lesion in the inferior aspect of the posterior left 8th rib explains the radiographic appearance. No pulmonary mass. No acute findings in the abdomen or pelvis. Assessment & Plan - Diagnosis (1) Acute kidney injury superimposed on chronic kidney disease Is this a current diagnosis for this admission?: Yes Plan: Likely due to dehydration as well as use of lisinopril and hydrochlorothiazide CT scan of the abdomen and pelvis did not show any evidence of hydronephrosis Renal function continues to improve with IV fluid therapy. Nephrology input noted (2) Klebsiella cystitis Is this a current diagnosis for this admission?: Yes Plan: Improving Remains afebrile. No leukocytosis. Treated with oral ciprofloxacin (3) Dehydration Is this a current diagnosis for this admission?: Yes Plan: Improved on IV fluids (4) Generalized weakness Is this a current diagnosis for this admission?: Yes Plan: Improving. Continue PT OT (5) Hypertension Qualifiers: Hypertension type: essential hypertension Qualified Code(s): I10 - Essential (primary) hypertension Is this a current diagnosis for this admission?: Yes Plan: Blood pressure is at goal while home antihypertensive being held Hydralazine prn (6) Metabolic acidosis Is this a current diagnosis for this admission?: Yes Plan: Resolved - Time Time Spent with patient: 25-34 minutes Medications reviewed and adjusted accordingly: Yes Anticipated discharge: Home with Homehealth Within: within 36 hours - Inpatient Certification Medical Necessity: Need For IV Fluids
[2017-03-22 15:46] LABS: ANION GAP 11 (5-19); BLOOD UREA NITROGEN 13 mg/dL (7-20); CALCIUM 8.7 mg/dL (8.4-10.2); CARBON DIOXIDE 20 mmol/L (22-30); CHLORIDE 113 mmol/L (98-107); CREATININE RESULT 1.69 mg/dL (0.52-1.25); GLUCOSE 89 mg/dL (75-110); POTASSIUM 4.4 mmol/L (3.6-5.0); SODIUM 144.2 mmol/L (137-145)
[2017-03-22] MEDS: FENOFIBRATE NANOCRYSTALLIZED 145 MG TABLET PO SCH (21:47)
[2017-03-22] MEDS: ATORVASTATIN CALCIUM 20 MG TABLET PO SCH (21:48)
[2017-03-23] MEDS: HEPARIN SOD (PORCINE) 5,000 UNIT/ML 1 ML SYRINGE SUBCUT SCH ×3 (05:03→21:39)
[2017-03-23 05:39] LABS: HEMATOCRIT 28.4 % (36.0-47.0); HEMOGLOBIN 9.7 g/dL (12.0-15.5); HGB HCT DIFFERENCE 0.7; MEAN CORPUSCULAR HEMOGLOBIN 31.1 pg (27.0-33.4); MEAN CORPUSCULAR HGB CONC 34.2 g/dL (32.0-36.0); MEAN CORPUSCULAR VOLUME 91 fl (80-97); RED BLOOD COUNT 3.12 10^6/uL (3.72-5.28); RED CELL DISTRIBUTION WIDTH 13.4 % (11.5-14.0); WHITE BLOOD COUNT 6.5 10^3/uL (4.0-10.5)
[2017-03-23] MEDS: LACTOBACILLUS ACIDOPHILUS 250 MG TAB PO SCH ×2 (10:14→17:31)
[2017-03-23] MEDS: SODIUM BICARBONATE 650 MG TABLET PO SCH (10:14)
[2017-03-23] MEDS: CHOLESTYRAMINE/ASPARTAME 4 GM PACKET PO SCH ×4 (10:14→21:39)
[2017-03-23] MEDS: SERTRALINE HCL 50 MG TABLET PO SCH (10:16)
[2017-03-23] MEDS: ASPIRIN 81 MG TABLET, ENT COATED PO SCH (10:16)
--- NOTE | 2017-03-23 12:24 | PDOC PROGRESS REPORT ---
Subjective Progress Note for:: 03/23/17 Subjective:: This is follow-up visit for an 86-year-old female who was admitted with acute kidney failure and diarrhea. Her kidney failure has improved significantly with IV fluids. She was found to have a urinary tract infection due to Klebsiella as well as generalized weakness. Her UTI is better, and she is currently on oral ciprofloxacin. She continues to improve with physical therapy. Recommendations have been made for home PT as well as a front-wheeled walker The patient states she is feeling much better. Her diarrhea, nausea vomiting have all resolved. She notes that she is able to ambulate longer distances with her walker. She denies any fever or chills. Denies chest pain shortness of breath or palpitations. She she is agreeable to being discharged home tomorrow with home health. Physical Exam Vital Signs: Temp Pulse Resp BP Pulse Ox 97.9 F 95 22 H 151/75 H 100 03/23/17 12:04 03/23/17 12:04 03/23/17 12:04 03/23/17 12:04 03/23/17 12:04 Intake & Output 03/22/17 03/23/17 03/24/17 06:59 06:59 06:59 Intake Total 2529 2270 Output Total 700 600 Balance 1829 1670 Weight 88.4 kg 88.4 kg General appearance: PRESENT: no acute distress, cooperative, hard of hearing, obese Head exam: PRESENT: atraumatic, normocephalic Respiratory exam: PRESENT: clear to auscultation markie, symmetrical, unlabored. ABSENT: accessory muscle use, chest wall tenderness, crackles, decreased breath sounds, prolonged expiratory phas, rales, retraction, rhonchi, stridor, tachypnea, wheezes, other Cardiovascular exam: PRESENT: RRR, +S1, +S2. ABSENT: bradycardia, clicks, diastolic murmur, gallop, irregular rhythm, rubs, systolic murmur, tachycardia, other Pulses: PRESENT: normal carotid pulses, normal radial pulses. ABSENT: normal femoral pulses, normal dorsalis pedis pul, +1 pedal pulses bilateral, +2 pedal pulses bilateral, other GI/Abdominal exam: PRESENT: normal bowel sounds, soft. ABSENT: ascites, diminished bowel sounds, distended, firm, guarding, hernia, hyperactive bowel sounds, hypoactive bowel sounds, mass, Tucker's sign, organolmegaly, rebound, rigid, tenderness, other Extremities exam: PRESENT: full ROM. ABSENT: calf tenderness, clubbing, joint swelling, pedal edema, tenderness, +1 edema, +2 edema, other Musculoskeletal exam: PRESENT: ambulatory, full ROM. ABSENT: deformity, dislocation, normal inspection, tenderness, other Neurological exam: PRESENT: awake, oriented to person, oriented to place, oriented to time, oriented to situation Results Laboratory Results: 03/23/17 04:28 03/22/17 14:47 03/22/17 03/23/17 14:47 04:28 WBC 6.5 RBC 3.12 L Hgb 9.7 L Hct 28.4 L MCV 91 MCH 31.1 MCHC 34.2 RDW 13.4 Plt Count 158 Sodium 144.2 Potassium 4.4 Chloride 113 H Carbon Dioxide 20 L Anion Gap 11 BUN 13 Creatinine 1.69 H Est GFR ( Amer) 35 L Est GFR (Non-Af Amer) 29 L Glucose 89 Calcium 8.7 Impressions: Head CT 03/15/17 12:57 IMPRESSION: Involutional changes of aging with microvascular ischemia and no acute intracranial findings. EVIDENCE OF ACUTE STROKE: NO. Acute Abdomen Series 03/15/17 15:09 IMPRESSION: Somewhat limited study as noted above. A nodular density is identified in the left mid lung field and the possibility of a neoplastic process cannot be excluded. Other findings as noted above Abdomen/Pelvis CT 03/15/17 17:11 IMPRESSION: 2 cm calcified benign-appearing bone lesion in the inferior aspect of the posterior left 8th rib explains the radiographic appearance. No pulmonary mass. No acute findings in the abdomen or pelvis. Chest CT 03/15/17 17:11 IMPRESSION: 2 cm calcified benign-appearing bone lesion in the inferior aspect of the posterior left 8th rib explains the radiographic appearance. No pulmonary mass. No acute findings in the abdomen or pelvis. Assessment & Plan - Diagnosis (1) Acute kidney injury superimposed on chronic kidney disease Is this a current diagnosis for this admission?: Yes Plan: Likely due to dehydration as well as use of lisinopril and hydrochlorothiazide CT scan of the abdomen and pelvis did not show any evidence of hydronephrosis Renal function continues to improve with IV fluid therapy. Nephrology input noted (2) Klebsiella cystitis Is this a current diagnosis for this admission?: Yes Plan: Improving Remains afebrile. No leukocytosis. Treated with oral ciprofloxacin (3) Dehydration Is this a current diagnosis for this admission?: Yes Plan: Improved on IV fluids (4) Generalized weakness Is this a current diagnosis for this admission?: Yes Plan: Improving. Continue PT OT. Will be discharged home with home health and a front wheel walker for PTs recommendation (5) Hypertension Qualifiers: Hypertension type: essential hypertension Qualified Code(s): I10 - Essential (primary) hypertension Is this a current diagnosis for this admission?: Yes Plan: Blood pressure is at goal while home antihypertensive being held ( hydrochlorothiazide, lisinopril) Hydralazine prn (6) Metabolic acidosis Is this a current diagnosis for this admission?: Yes Plan: Resolved - Time Time Spent with patient: 35 or more minutes Anticipated discharge: Home with Homehealth Within: within 24 hours - Inpatient Certification Medical Necessity: Risk of Complication if Not Cared For in Hospital
[2017-03-23] MEDS: ONDANSETRON HCL INJ/PF 4 MG/2 ML SDV IV PRN (13:39)
[2017-03-23] MEDS ORDERED: HYDRALAZINE HCL INJ/PF 20 MG/1 ML SDV IV PRN (15:30)
[2017-03-23] MEDS: ATORVASTATIN CALCIUM 20 MG TABLET PO SCH (21:39)
[2017-03-23] MEDS: FENOFIBRATE NANOCRYSTALLIZED 145 MG TABLET PO SCH (21:39)
[2017-03-24] MEDS: HEPARIN SOD (PORCINE) 5,000 UNIT/ML 1 ML SYRINGE SUBCUT SCH ×2 (05:01→13:31)
[2017-03-24] MEDS: CHOLESTYRAMINE/ASPARTAME 4 GM PACKET PO SCH ×2 (09:18→12:06)
[2017-03-24] MEDS: SODIUM BICARBONATE 650 MG TABLET PO SCH (09:19)
[2017-03-24] MEDS: LACTOBACILLUS ACIDOPHILUS 250 MG TAB PO SCH (09:20)
[2017-03-24] MEDS: ASPIRIN 81 MG TABLET, ENT COATED PO SCH (09:20)
[2017-03-24] MEDS: SERTRALINE HCL 50 MG TABLET PO SCH (09:20)
--- NOTE | 2017-03-24 12:07 | PDOC DISCHARGE SUMMARY ---
General - Admit/Disc Date/PCP Admission Date/Primary Care Provider: 03/15/17 18:29 Discharge Date: 03/24/17 - Home with Homehealth - Discharge Diagnosis (1) Dehydration Is this a current diagnosis for this admission?: Yes (2) Klebsiella cystitis Is this a current diagnosis for this admission?: Yes (3) Acute kidney injury superimposed on chronic kidney disease Is this a current diagnosis for this admission?: Yes (4) Metabolic acidosis Is this a current diagnosis for this admission?: Yes (5) Generalized weakness Is this a current diagnosis for this admission?: Yes (6) Hypertension Is this a current diagnosis for this admission?: Yes - Additional Information Resuscitation Status: Full Code Discharge Diet: As Tolerated Discharge Activity: Activity As Tolerated Home Medications: Aspirin [Aspirin EC] 81 mg PO DAILY 03/15/17 Atorvastatin Calcium [Lipitor 20 mg Tablet] 20 mg PO QHS 03/15/17 Bisoprolol/Hydrochlorothiazide [Ziac 5-6.25 mg Tablet] 1 tab PO Q12 03/15/17 Diphenhydramine HCl [Nighttime Sleep Aid] 50 mg PO HSP PRN 03/15/17 Ergocalciferol (Vitamin D2) [Vitamin D2] 50,000 unit PO WE@1000 03/15/17 Fenofibrate 160 mg PO QHS 03/15/17 Lisinopril [Prinivil 2.5 mg Tablet] 2.5 mg PO DAILY 03/15/17 Sertraline HCl [Zoloft] 25 mg PO DAILY 03/15/17 Aspirin [Ecotrin 81 mg EC Tablet] 81 mg PO DAILY tabec 03/24/17 History of Present Illness Patient complains of: diarrhea. History of Present Illness: AMARJIT CHACON is a 86 year old female who was admitted for acute kidney injury and diarrhea. She was also found to have urinary tract infection due to Klebsiella. For more details please refer to previously dictated H&P Hospital Course Hospital Course: 86-year-old female who was admitted for acute kidney injury and diarrhea. She was also found to have urinary tract infection due to Klebsiella. She was treated with aggressive IV fluids rehydration and has improved significantly. She has completed her antibiotic closed with ciprofloxacin. Her generalized weakness is better. Patient was evaluated by PT who recommended discharging home with home health and PT as well as a front-wheeled walker. Physical Exam Vital Signs: Temp Pulse Resp BP Pulse Ox 97.7 F 77 17 148/68 H 100 03/24/17 07:57 03/24/17 07:57 03/24/17 07:57 03/24/17 07:57 03/24/17 07:57 Intake & Output 03/23/17 03/24/17 03/25/17 06:59 06:59 06:59 Intake Total 2270 1246 Output Total 600 Balance 1670 1246 Weight 88.4 kg 88.5 kg General appearance: PRESENT: no acute distress, cooperative, obese Head exam: PRESENT: atraumatic, normocephalic Eye exam: PRESENT: conjunctiva pink Respiratory exam: PRESENT: clear to auscultation markie, symmetrical, unlabored Cardiovascular exam: PRESENT: RRR, +S1, +S2 GI/Abdominal exam: PRESENT: normal bowel sounds, soft, other. ABSENT: ascites, diminished bowel sounds, distended, firm, guarding, hernia, hyperactive bowel sounds, hypoactive bowel sounds, mass, Tucker's sign, organolmegaly, rebound, rigid, tenderness Extremities exam: PRESENT: full ROM Neurological exam: PRESENT: alert, awake, oriented to person, oriented to place , oriented to time, oriented to situation, reflexes normal, CN II-XII grossly intact Psychiatric exam: PRESENT: anxious Results Laboratory Results: 03/23/17 04:28 03/22/17 14:47 Impressions: Head CT 03/15/17 12:57 IMPRESSION: Involutional changes of aging with microvascular ischemia and no acute intracranial findings. EVIDENCE OF ACUTE STROKE: NO. Acute Abdomen Series 03/15/17 15:09 IMPRESSION: Somewhat limited study as noted above. A nodular density is identified in the left mid lung field and the possibility of a neoplastic process cannot be excluded. Other findings as noted above Abdomen/Pelvis CT 03/15/17 17:11 IMPRESSION: 2 cm calcified benign-appearing bone lesion in the inferior aspect of the posterior left 8th rib explains the radiographic appearance. No pulmonary mass. No acute findings in the abdomen or pelvis. Chest CT 03/15/17 17:11 IMPRESSION: 2 cm calcified benign-appearing bone lesion in the inferior aspect of the posterior left 8th rib explains the radiographic appearance. No pulmonary mass. No acute findings in the abdomen or pelvis. Status: Image reviewed by me Qualifiers PATEINT BEING DISCHARGED WITH ANY OF THE FOLLOWING DIAGNOSIS?: No Plan Time Spent: Greater than 30 Minutes
[2017-03-24 13:22] LABS: ANION GAP 11 (5-19); BLOOD UREA NITROGEN 10 mg/dL (7-20); CALCIUM 8.9 mg/dL (8.4-10.2); CARBON DIOXIDE 21 mmol/L (22-30); CHLORIDE 112 mmol/L (98-107); CREATININE RESULT 1.79 mg/dL (0.52-1.25); GLUCOSE 109 mg/dL (75-110); POTASSIUM 4.7 mmol/L (3.6-5.0); SODIUM 144.2 mmol/L (137-145)
[2017-03-24 15:36] VITALS: BP 145/50
== END 2017-03-24 16:00 | disposition home health service (06) | DRG 683 ==
LOC: ER 12:41 → EH 18:16 → UNDOADMIN 18:16 → EH 18:29 → 4S 19:52
PROVIDERS: ADMIT Internal Medicine; ATTEND Internal Medicine
DX: N17.0 Acute kidney failure with tubular necrosis (principal); N30.00 Acute cystitis without hematuria; E87.2 Acidosis; B96.1 Klebsiella pneumoniae [K. pneumoniae] as the cause of diseases classified elsewhere; E86.0 Dehydration; I10 Essential (primary) hypertension; F32.9 Major depressive disorder, single episode, unspecified; T50.2X5A Adverse effect of carbonic-anhydrase inhibitors, benzothiadiazides and other diuretics, initial encounter; T46.4X5A Adverse effect of angiotensin-converting-enzyme inhibitors, initial encounter; D64.9 Anemia, unspecified; G70.00 Myasthenia gravis without (acute) exacerbation; R19.7 Diarrhea, unspecified; E87.6 Hypokalemia; Z79.899 Other long term (current) drug therapy; Z90.49 Acquired absence of other specified parts of digestive tract; Z80.8 Family history of malignant neoplasm of other organs or systems; Z88.2 Allergy status to sulfonamides
CPT/HCPCS: 36415; 70450; 71250; 74022; 74176; 80048; 80053; 81001; 82550; 82553; 83605; 83735; 84484; 85025; 85027; 87040; 87045; 87077; 87086; 87088; 87186; 87205; 87493; 93005; 93010; 96361; 96365; 99285; G8978-GP; G8979-GP; J0696; J1644; J2405; J3490; J7030; J7060; J7120

== ENCOUNTER 2018-03-14 12:12 | Emergency (ER) | payer MEDICARE, BC ==
[2018-03-14] MEDS ORDERED: NORMAL SALINE 1000 ML 1,000 ML IV ONE (12:37)
--- NOTE | 2018-03-14 12:42 | ER Document Report ---
ED General - General Chief Complaint: General Weakness Stated Complaint: GENERAL WEAKNESS Time Seen by Provider: 03/14/18 12:29 TRAVEL OUTSIDE OF THE [place] IN LAST 30 DAYS: No - HPI Notes: Patient is a 87-year-old female that presents to the emergency department for chief complaint of failure to thrive. Patient was referred to the emergency room from her primary care office for concern of dehydration and failure to thrive. Family states that since a fall 3 weeks ago she has been less ambulatory. Patient has not been eating or drinking much throughout the day. Patient has no current complaints. She denies any pain, shortness of breath, cough, abdominal pain, nausea, vomiting, numbness or weakness. Family states that they were discussing hospice care with the primary care provider but no decisions have been made yet. HPI is limited because patient and family are poor historians Past Medical History: Hypertension, hyperlipidemia Past Surgical History: Viewed in chart Social History: Unknown Family History: Reviewed and noncontributory for presenting illness Allergies: Reviewed, see documented allergy list. REVIEW OF SYSTEMS: CONSTITUTIONAL : No fever No chills No diaphoresis No recent illness EENT: No vision changes No congestion No sore throat CARDIOVASCULAR: No chest pain No palpitations RESPIRATORY: No shortness of breath No cough No difficulty breathing GASTROINTESTINAL: No abdominal pain No nausea No vomiting No diarrhea GENITOURINARY: No dysuria No hematuria No difficulty urinating MUSCULOSKELETAL: No back pain No leg pain No arm pain SKIN: No rashes No lesions LYMPHATIC: No swollen, enlarged glands. NEUROLOGICAL: No lightheadedness No headache No weakness No paresthesias PSYCHIATRIC: No anxiety No depression PHYSICAL EXAMINATION: Vital signs reviewed, nursing noted reviewed. GENERAL: Alert, in no acute distress. HEAD: Atraumatic, normocephalic. EYES: Eyes appear normal, extraocular movements intact, sclera anicteric, conjunctiva are normal. ENT: nares patent, oropharynx clear without exudates. Dry mucous membranes. NECK: Normal range of motion, supple without lymphadenopathy LUNGS: Breath sounds clear to auscultation bilaterally and equal. No wheezes rales or rhonchi. HEART: Regular rate and rhythm without murmurs ABDOMEN: Soft, nontender, normoactive bowel sounds. No rebound, guarding, or rigidity. No masses appreciated. EXTREMITIES: Nontender, good range of motion, right lower extremity edema, no left lower extremity edema. NEUROLOGICAL: No focal neurological deficits. Moves all extremities spontaneously Motor and sensory grossly intact on exam. PSYCH: Normal mood, normal affect. SKIN: Warm, Dry, normal turgor, no rashes or lesions noted on exposed skin - Related Data Allergies/Adverse Reactions: sulfamethoxazole [From Septra] Allergy (Unknown, Verified 03/15/17 12:48) trimethoprim [From Septra] Allergy (Unknown, Verified 03/15/17 12:48) Past Medical History - Social History Smoking Status: Never Smoker Family History: Reviewed & Not Pertinent, Malignancy - Brother with bone cancer - Past Medical History Cardiac Medical History: Reports: Hx Hypertension Neurological Medical History: Denies: Hx Cerebrovascular Accident, Hx Migraine, Hx Seizures Renal/ Medical History: Denies: Hx Peritoneal Dialysis Past Surgical History: Reports: Hx Cholecystectomy, Hx Hysterectomy, Other - Cataract surgery - Immunizations Hx Pneumococcal Vaccination: 05/08/07 Review of Systems - Review of Systems Notes: Dictated Physical Exam - Vital signs Vitals: Resp Pulse Ox 18 97 03/14/18 12:22 03/14/18 12:22 - Notes Notes: Dictated Course - Re-evaluation Re-evalutation: 03/14/18 12:40 Vitals reviewed. Nursing notes reviewed. Patient is reportedly at her baseline mental status. EKG shows no acute ischemia. 03/14/18 15:15 Patient has remained stable. Lab work shows hyponatremia and renal failure. These are about baseline for this patient. She does seem dehydrated and received a full liter of normal saline. There are no signs of infection. Urinalysis is negative. Chest x-ray shows no acute process. The remainder of her workup is normal. Her potassium is normal. 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 Family was encouraged to try boost or Ensure drinks to supplement nutrition. They state they will see her primary care doctor to discuss hospice or palliative care if she continues to have failure to thrive at home. If she is unable to tolerate liquids at home they will return to the emergency room. They will also return for any new or worsening symptoms. Patient is discharged in stable condition. Family is in agreement with this plan. Laboratory 03/14/18 03/14/18 03/14/18 13:45 13:45 13:45 WBC 6.2 RBC 3.86 Hgb 12.1 Hct 34.6 L MCV 90 MCH 31.3 MCHC 35.0 RDW 13.0 Plt Count 206 Seg Neutrophils % 58.9 Lymphocytes % 28.8 Monocytes % 8.2 Eosinophils % 3.4 Basophils % 0.7 Absolute Neutrophils 3.7 Absolute Lymphocytes 1.8 Absolute Monocytes 0.5 Absolute Eosinophils 0.2 Absolute Basophils 0.0 Sodium 147.8 H Potassium 4.4 Chloride 116 H Carbon Dioxide 19 L Anion Gap 13 BUN 28 H Creatinine 2.08 H Est GFR ( Amer) 27 L Est GFR (Non-Af Amer) 23 L Glucose 90 Calcium 9.5 Total Bilirubin 0.9 Direct Bilirubin 0.4 Neonat Total Bilirubin Not Reportable Neonat Direct Bilirubin Not Reportable Neonat Indirect Bili Not Reportable AST 32 ALT 17 Alkaline Phosphatase 61 Troponin I 0.030 Total Protein 6.2 L Albumin 3.6 Urine Color Urine Appearance Urine pH Ur Specific [place] Urine Protein Urine Glucose (UA) Urine Ketones Urine Blood Urine Nitrite Urine Bilirubin Urine Urobilinogen Ur Leukocyte Esterase Urine WBC (Auto) Urine RBC (Auto) U Hyaline Cast (Auto) Urine Bacteria (Auto) Squamous Epi Cells Auto Amorphous Sediment Auto Urine Mucus (Auto) Urine Ascorbic Acid 03/14/18 14:00 WBC RBC Hgb Hct MCV MCH MCHC RDW Plt Count Seg Neutrophils % Lymphocytes % Monocytes % Eosinophils % Basophils % Absolute Neutrophils Absolute Lymphocytes Absolute Monocytes Absolute Eosinophils Absolute Basophils Sodium Potassium Chloride Carbon Dioxide Anion Gap BUN Creatinine Est GFR ( Amer) Est GFR (Non-Af Amer) Glucose Calcium Total Bilirubin Direct Bilirubin Neonat Total Bilirubin Neonat Direct Bilirubin Neonat Indirect Bili AST ALT Alkaline Phosphatase Troponin I Total Protein Albumin Urine Color YELLOW Urine Appearance CLOUDY Urine pH 5.0 Ur Specific [place] 1.018 Urine Protein 100 H Urine Glucose (UA) NEGATIVE Urine Ketones NEGATIVE Urine Blood LARGE H Urine Nitrite NEGATIVE Urine Bilirubin NEGATIVE Urine Urobilinogen NEGATIVE Ur Leukocyte Esterase NEGATIVE Urine WBC (Auto) 3 Urine RBC (Auto) 9 U Hyaline Cast (Auto) 5 Urine Bacteria (Auto) TRACE Squamous Epi Cells Auto <1 Amorphous Sediment Auto TRACE Urine Mucus (Auto) RARE Urine Ascorbic Acid NEGATIVE Chest X-Ray 03/14/18 12:31 IMPRESSION: NO ACUTE RADIOGRAPHIC FINDING IN THE CHEST. - Vital Signs Vital signs: Temp Pulse Resp BP Pulse Ox 97.0 F 17 225/77 H 99 03/14/18 12:24 03/14/18 15:03 03/14/18 15:03 03/14/18 15:03 - Laboratory Result Diagrams: 03/14/18 13:45 03/14/18 13:45 Laboratory results interpreted by me: 03/14/18 03/14/18 03/14/18 13:45 13:45 14:00 Hct 34.6 L Sodium 147.8 H Chloride 116 H Carbon Dioxide 19 L BUN 28 H Creatinine 2.08 H Est GFR ( Amer) 27 L Est GFR (Non-Af Amer) 23 L Total Protein 6.2 L Urine Protein 100 H Urine Blood LARGE H - EKG Interpretation by Me Additional EKG results interpreted by me: 03/14/18 12:41 Interpreted by myself 1226: Normal sinus rhythm, rate 58, normal axis, no ectopy, no ST elevation, nonspecific T wave changes laterally Discharge - Discharge Clinical Impression: Hypernatremia, Dehydration Failure to thrive Qualifiers: Failure to thrive age range: in adult Qualified Code(s): R62.7 - Adult failure to thrive Condition: Stable Disposition: HOME, SELF-CARE Instructions: Dehydration ([facility]) Additional Instructions: Please return to the emergency department if you have any worsening, or concern of your symptoms. Please return to the emergency department if you develop chest pain, difficulty breathing, severe abdominal pain, or ongoing vomiting. Please follow-up with your primary care physician in 2-3 days and any other recommended physicians. If prescribed, take all medications as directed. If you have any questions or concerns do not hesitate to return the emergency department for evaluation. Follow-up with your primary care doctor to discuss further needs for hospice or palliative care consultation as desired. Patient can have Boost or Ensure drinks to supplement nutrition.
--- NOTE | 2018-03-14 13:22 | EKG REPORT ---
SEVERITY:- NORMAL ECG - SINUS RHYTHM : Confirmed by: Davion Gray MD 14-Mar-2018 13:21:29
--- NOTE | 2018-03-14 13:24 | RADIOLOGY REPORT (SQ) ---
EXAM DESCRIPTION: CHEST SINGLE VIEW COMPLETED DATE/TIME: 03/14/2018 12:59 pm REASON FOR STUDY: cough COMPARISON: None. EXAM PARAMETERS: NUMBER OF VIEWS: One view. TECHNIQUE: Single frontal radiographic view of the chest acquired. RADIATION DOSE: NA LIMITATIONS: None. FINDINGS: LUNGS AND PLEURA: No opacities, masses or pneumothorax. No pleural effusion. MEDIASTINUM AND HILAR STRUCTURES: No masses. Contour normal. HEART AND VASCULAR STRUCTURES: Cardiac silhouette is enlarged. BONES: No acute findings. HARDWARE: None in the chest. OTHER: No other significant finding. IMPRESSION: NO ACUTE RADIOGRAPHIC FINDING IN THE CHEST. TECHNICAL DOCUMENTATION: JOB ID: [id number] [employer]- All Rights Reserved Reading location - IP/workstation name: [email or web address]
[2018-03-14 13:57] LABS: ABSOLUTE EOSINOPHILS # (AUTO) 0.2 10^3/uL (0.0-0.6); ABSOLUTE LYMPHOCYTES (AUTO) 1.8 10^3/uL (0.5-4.7); ABSOLUTE MONOCYTES (AUTO) 0.5 10^3/uL (0.1-1.4); ABSOLUTE NEUT (AUTO) 3.7 10^3/uL (1.7-8.2); BASOPHILS % (AUTO) 0.7 % (0-2); EOSINOPHILS % (AUTO) 3.4 % (0-6); HEMATOCRIT 34.6 % (36.0-47.0); HEMOGLOBIN 12.1 g/dL (12.0-15.5); LYMPHOCYTES % (AUTO) 28.8 % (13-45); MEAN CORPUSCULAR HEMOGLOBIN 31.3 pg (27.0-33.4); MEAN CORPUSCULAR VOLUME 90 fl (80-97); MONOCYTES % (AUTO) 8.2 % (3-13); PLATELET COUNT 206 10^3/uL (150-450); RED BLOOD COUNT 3.86 10^6/uL (3.72-5.28); SEGMENTED NEUTROPHILS % (AUTO) 58.9 % (42-78); TOTAL CELLS COUNTED % (AUTO) 100 %; WHITE BLOOD COUNT 6.2 10^3/uL (4.0-10.5)
[2018-03-14 14:11] LABS: ALANINE AMINOTRANSFERASE 17 U/L (9-52); ALBUMIN 3.6 g/dL (3.5-5.0); ALKALINE PHOSPHATASE 61 U/L (38-126); ANION GAP 13 (5-19); ASPARTATE AMINO TRANSFERASE 32 U/L (14-36); BILIRUBIN,DIRECT 0.4 mg/dL (0.0-0.4); BILIRUBIN,TOTAL 0.9 mg/dL (0.2-1.3); BLOOD UREA NITROGEN 28 mg/dL (7-20); CALCIUM 9.5 mg/dL (8.4-10.2); CARBON DIOXIDE 19 mmol/L (22-30); CHLORIDE 116 mmol/L (98-107); GLUCOSE 90 mg/dL (75-110); POTASSIUM 4.4 mmol/L (3.6-5.0); SODIUM 147.8 mmol/L (137-145); TOTAL PROTEIN 6.2 g/dL (6.3-8.2)
[2018-03-14 14:35] LABS: AMORPHOUS SEDIMENT,URINE TRACE /HPF; APPEARANCE,URINE CLOUDY; BILIRUBIN,URINE NEGATIVE (NEGATIVE); COLOR,URINE YELLOW; GLUCOSE, URINE NEGATIVE (NEGATIVE); KETONES,URINE NEGATIVE (NEGATIVE); LEUKOCYTE ESTERASE,URINE NEGATIVE (NEGATIVE); NITRITE,URINE NEGATIVE (NEGATIVE); PROTEIN,URINE 100 mg/dL (NEGATIVE); URINE SPECIFIC GRAVITY 1.018; UROBILINOGEN,URINE NEGATIVE mg/dL (<2.0)
[2018-03-14 16:20] VITALS: BP 225/77
== END 2018-03-14 17:01 | disposition home or self-care (01) ==
LOC: ER 12:12
DX: R62.7 Adult failure to thrive (principal); E87.0 Hyperosmolality and hypernatremia; E86.0 Dehydration; I12.9 Hypertensive chronic kidney disease with stage 1 through stage 4 chronic kidney disease, or unspecified chronic kidney disease; N18.9 Chronic kidney disease, unspecified; N17.9 Acute kidney failure, unspecified; Z88.1 Allergy status to other antibiotic agents
CPT/HCPCS: 93005; 99285; 96360; 96361; 51701; 36415; 85025; 80053; 81001; 84484; 71045; 93010; J7030

== ENCOUNTER 2018-06-12 11:41 | Emergency (ER) | payer MEDICARE, BC ==
[2018-06-12 12:17] LABS: ABSOLUTE EOSINOPHILS # (AUTO) 0.2 10^3/uL (0.0-0.6); ABSOLUTE LYMPHOCYTES (AUTO) 1.7 10^3/uL (0.5-4.7); ABSOLUTE MONOCYTES (AUTO) 0.4 10^3/uL (0.1-1.4); ABSOLUTE NEUT (AUTO) 5.2 10^3/uL (1.7-8.2); BASOPHILS % (AUTO) 0.6 % (0-2); EOSINOPHILS % (AUTO) 2.8 % (0-6); HEMOGLOBIN 11.8 g/dL (12.0-15.5); MEAN CORPUSCULAR HEMOGLOBIN 31.5 pg (27.0-33.4); MEAN CORPUSCULAR HGB CONC 34.9 g/dL (32.0-36.0); MEAN CORPUSCULAR VOLUME 90 fl (80-97); MONOCYTES % (AUTO) 5.9 % (3-13); PLATELET COUNT 209 10^3/uL (150-450); RED BLOOD COUNT 3.76 10^6/uL (3.72-5.28); RED CELL DISTRIBUTION WIDTH 13.9 % (11.5-14.0); SEGMENTED NEUTROPHILS % (AUTO) 68.7 % (42-78); TOTAL CELLS COUNTED % (AUTO) 100 %; WHITE BLOOD COUNT 7.5 10^3/uL (4.0-10.5)
[2018-06-12 12:23] LABS: VENOUS BLOOD BASE EXCESS 3.8 mmol/L; VENOUS BLOOD HCO3 29.9 mmol/L (20-32); VENOUS BLOOD PCO2 51.6 mmHg (35-63); VENOUS BLOOD PH 7.38 (7.30-7.42)
[2018-06-12 12:24] LABS: INTERNATIONAL RATION (INR) 0.92; PROTHROMBIN TIME 12.8 SEC (11.4-15.4)
[2018-06-12 12:38] LABS: ALANINE AMINOTRANSFERASE 24 U/L (9-52); ALKALINE PHOSPHATASE 90 U/L (38-126); ANION GAP 9 (5-19); ASPARTATE AMINO TRANSFERASE 34 U/L (14-36); BILIRUBIN,DIRECT 0.3 mg/dL (0.0-0.4); BILIRUBIN,TOTAL 0.7 mg/dL (0.2-1.3); BLOOD UREA NITROGEN 20 mg/dL (7-20); CALCIUM 9.2 mg/dL (8.4-10.2); CARBON DIOXIDE 28 mmol/L (22-30); CHLORIDE 104 mmol/L (98-107); GLUCOSE 98 mg/dL (75-110); SODIUM 141.3 mmol/L (137-145); TOTAL PROTEIN 6.3 g/dL (6.3-8.2)
[2018-06-12 12:52] LABS: APPEARANCE,URINE CLEAR; BILIRUBIN,URINE NEGATIVE (NEGATIVE); COLOR,URINE YELLOW; GLUCOSE, URINE NEGATIVE (NEGATIVE); KETONES,URINE NEGATIVE (NEGATIVE); LEUKOCYTE ESTERASE,URINE NEGATIVE (NEGATIVE); NITRITE,URINE NEGATIVE (NEGATIVE); PROTEIN,URINE NEGATIVE (NEGATIVE); URINE SPECIFIC GRAVITY 1.013
--- NOTE | 2018-06-12 14:53 | RADIOLOGY REPORT (SQ) ---
EXAM DESCRIPTION: CT HEAD WITHOUT COMPLETED DATE/TIME: 06/12/2018 2:43 pm REASON FOR STUDY: fall COMPARISON: 03/15/2017 TECHNIQUE: Axial images acquired through the brain without intravenous contrast. Images reviewed wi th bone, brain and subdural windows. Additional sagittal and coronal reconstructions were generated. Images stored on PACS. All CT scanners at this facility use dose modulation, iterative reconstruction, and/or weight based d osing when appropriate to reduce radiation dose to as low as reasonably achievable (ALARA). [facility]: Dose Right [facility]: CareDose [facility]: Dose Right [facility]: Teradose 4D [facility]: [employer] RADIATION DOSE: CT Rad equipment meets quality standard of care and radiation dose reduction techniq ues were employed. CTDIvol: 53.2 mGy. DLP: 1097 mGy-cm. mGy. LIMITATIONS: None. FINDINGS: VENTRICLES: Normal size and contour. CEREBRUM: No masses. No hemorrhage. No midline shift. No evidence for acute infarction. Few scatte red areas of low density in the white matter most likely chronic small vessel ischemic changes. CEREBELLUM: No masses. No hemorrhage. No alteration of density. No evidence for acute infarction. EXTRAAXIAL SPACES: No fluid collections. No masses. ORBITS AND GLOBE: No intra- or extraconal masses. Normal contour of globe without masses. CALVARIUM: No fracture. PARANASAL SINUSES: No fluid or mucosal thickening. SOFT TISSUES: No mass or hematoma. OTHER: No other significant finding. IMPRESSION: No acute intracranial pathology. Small vessel white matter disease in keeping with adva nced patient age. EVIDENCE OF ACUTE STROKE: NO. COMMENT: Quality ID # [id number]: Final reports with documentation of one or more dose reduction techniques (e.g., Automated exposure control, adjustment of the mA and/or kV according to patient size, use of iterative reconstruction technique) TECHNICAL DOCUMENTATION: JOB ID: [id number] [employer]- All Rights Reserved Reading location - IP/workstation name: [email or web address]
--- NOTE | 2018-06-12 15:07 | ER Document Report ---
ED General - General Chief Complaint: Altered Mental Status Stated Complaint: ALTERED MENTAL STATUS Time Seen by Provider: 06/12/18 12:08 TRAVEL OUTSIDE OF THE [place] IN LAST 30 DAYS: No - HPI Patient complains to provider of: Dementia altered mental status Notes: Patient coming in with a history of altered mental status is a DNR apparently the patient was at her place of residence when she fell out of her chair and had an episode of unresponsiveness. Patient upon my evaluation is alert able to follow commands does not complain of any pain. Family later comes at bedside states no changes any medications but does state that the patient is having difficulty sleeping states that she is on melatonin however only sleeps for about 3-4 hours and then will be up for most of the night. States patient was to be at baseline upon my evaluation. - Related Data Allergies/Adverse Reactions: sulfamethoxazole [From Septra] Allergy (Unknown, Verified 03/15/17 12:48) trimethoprim [From Septra] Allergy (Unknown, Verified 03/15/17 12:48) Past Medical History - Social History Smoking Status: Unknown if Ever Smoked Chew tobacco use (# tins/day): No Frequency of alcohol use: None Drug Abuse: None Family History: Reviewed & Not Pertinent, Malignancy - Brother with bone cancer Patient has suicidal ideation: No Patient has homicidal ideation: No - Past Medical History Cardiac Medical History: Reports: Hx Hypertension Neurological Medical History: Denies: Hx Cerebrovascular Accident, Hx Migraine, Hx Seizures Renal/ Medical History: Denies: Hx Peritoneal Dialysis Past Surgical History: Reports: Hx Cholecystectomy, Hx Hysterectomy, Other - Cataract surgery - Immunizations Hx Pneumococcal Vaccination: 05/08/07 Review of Systems - Review of Systems -: Yes ROS unobtainable due to patient's medical condition - Dementia Physical Exam - Vital signs Vitals: Resp 16 06/12/18 11:45 Interpretation: Normal - General General appearance: Appears well, Alert - HEENT Head: Normocephalic, Atraumatic Eyes: Normal Pupils: PERRL - Respiratory Respiratory status: No respiratory distress Chest status: Nontender Breath sounds: Normal Chest palpation: Normal - Cardiovascular Rhythm: Regular Heart sounds: Normal auscultation Murmur: No - Abdominal Inspection: Normal Distension: No distension Bowel sounds: Normal Tenderness: Nontender Organomegaly: No organomegaly - Back Back: Normal, Nontender - Extremities General upper extremity: Normal inspection, Nontender, Normal color, Normal ROM, Normal temperature General lower extremity: Normal inspection, Nontender, Normal color, Normal ROM, Normal temperature. No: Ludmila's sign - Neurological Neuro grossly intact: Yes Olyphant Coma Scale Eye Opening: Spontaneous Olyphant Coma Scale Verbal: Oriented Vicky Coma Scale Motor: Obeys Commands Vicky Coma Scale Total: 15 Speech: Normal Motor strength normal: LUE, RUE, LLE, RLE Sensory: Normal - Psychological Associated symptoms: Normal affect, Normal mood - Skin Skin Temperature: Warm Skin Moisture: Dry Skin Color: Normal Course - Re-evaluation Re-evalutation: 06/12/18 18:28 No critical pathology seen on the patient's evaluation no signs of sepsis no signs of any traumatic findings. Possibility patient may have a possible syncopal episode versus more likely the patient is exhausted from being up most the night and was actually asleep. Did review the results with the family member at bedside agrees with discharge home follow-up PCP. - Vital Signs Vital signs: Temp Pulse Resp BP Pulse Ox 97.6 F 15 175/71 H 100 06/12/18 12:01 06/12/18 15:00 06/12/18 14:00 06/12/18 15:00 - Laboratory Result Diagrams: 06/12/18 11:56 06/12/18 11:56 Laboratory results interpreted by me: 06/12/18 06/12/18 06/12/18 11:56 11:56 12:25 Hgb 11.8 L Hct 34.0 L Creatinine 1.58 H Est GFR ( Amer) 37 L Est GFR (Non-Af Amer) 31 L Urine Urobilinogen 2.0 H Urine Ascorbic Acid 20 H Discharge - Discharge Clinical Impression: Transient altered mental state Condition: Good Disposition: HOME, SELF-CARE Instructions: Dementia ([facility]), Near Syncopal Episode ([facility]) Additional Instructions: At this time laboratory studies not show any critical pathology her head CT is negative laboratory studies not show any signs of acute abnormalities or urinary tract infection I recommend she follow-up with your primary care physician for further evaluation of the patient's restlessness at nighttime return to the ER if any concerning issues arise.
[2018-06-12 15:52] VITALS: BP 175/71
--- NOTE | 2018-06-12 21:24 | EKG REPORT ---
SEVERITY:- BORDERLINE ECG - SINUS RHYTHM BORDERLINE T ABNORMALITIES, ANT-LAT LEADS : Confirmed by: Gay Augustine 12-Jun-2018 21:23:31
== END 2018-06-12 15:15 | disposition home or self-care (01) ==
LOC: ER 11:41
DX: F03.90 Unspecified dementia, unspecified severity, without behavioral disturbance, psychotic disturbance, mood disturbance, and anxiety (principal); G47.9 Sleep disorder, unspecified; Z79.899 Other long term (current) drug therapy; I10 Essential (primary) hypertension; Z66 Do not resuscitate; Z86.73 Personal history of transient ischemic attack (TIA), and cerebral infarction without residual deficits; Z88.1 Allergy status to other antibiotic agents
CPT/HCPCS: 36415; 70450; 80053; 81001; 82803; 83605; 85025; 85610; 87040; 87086; 93005; 93010; 99285

== ENCOUNTER 2018-09-14 11:01 | Emergency (ER) | payer MEDICARE, BC ==
[2018-09-14] MEDS ORDERED: DIPH/PERTUSS(ACELL)/TETANUS VAC/PF 0.5 ML SYR (>=10YO) IM ONE (11:40)
--- NOTE | 2018-09-14 11:42 | ER Document Report ---
ED Medical Screen (RME) - General Chief Complaint: Fall Injury Stated Complaint: FALL/HEAD AND ARM LACERATION Time Seen by Provider: 09/14/18 11:40 Mode of Arrival: Wheelchair Information source: Patient, Relative Notes: Patient had a witnessed fall this morning. Patient slid off of a chair and fell hitting a both a. Patient with abrasions to the left side of the head and left forearm. There was no loss of consciousness no nausea or vomiting. Patient is at her normal baseline mental status. 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 No hip tenderness. Patient does not take blood thinning medications. I have greeted and performed a rapid initial assessment of this patient. A comprehensive ED assessment and evaluation of the patient, analysis of test results and completion of the medical decision making process will be conducted by additional ED providers. TRAVEL OUTSIDE OF THE [place] IN LAST 30 DAYS: No - Related Data Allergies/Adverse Reactions: sulfamethoxazole [From Janra] Allergy (Unknown, Verified 09/14/18 11:03) trimethoprim [From Janra] Allergy (Unknown, Verified 09/14/18 11:03) Past Medical History - Social History Chew tobacco use (# tins/day): No Drug Abuse: None - Past Medical History Cardiac Medical History: Reports: Hx Hypertension Neurological Medical History: Denies: Hx Cerebrovascular Accident, Hx Migraine, Hx Seizures Renal/ Medical History: Denies: Hx Peritoneal Dialysis Past Surgical History: Reports: Hx Cholecystectomy, Hx Hysterectomy, Other - Cataract surgery - Immunizations History of Influenza Vaccine for 02/2017 - 07/2017 Season: No Physical Exam - Vital signs Vitals: Temp Pulse Resp BP Pulse Ox 98.7 F 54 L 18 137/69 H 98 09/14/18 11:09 09/14/18 11:09 09/14/18 11:09/14/18 11:09 09/14/18 11:09 - General General appearance: Appears well, Alert Notes: Abrasions to left synagogue area, skin tear to left forearm, nontender bilateral hips. Patient awake alert and answers questions appropriately Course - Vital Signs Vital signs: Temp Pulse Resp BP Pulse Ox 98.7 F 54 L 18 137/69 H 98 09/14/18 11:09 09/14/18 11:09 09/14/18 11:09/14/18 11:09/14/18 11:09
--- NOTE | 2018-09-14 12:25 | RADIOLOGY REPORT (SQ) ---
EXAM DESCRIPTION: CT HEAD WITHOUT COMPLETED DATE/TIME: 09/14/2018 11:56 am REASON FOR STUDY: fall, head injury COMPARISON: 06/12/2018 TECHNIQUE: Axial images acquired through the brain without intravenous contrast. Images reviewed wi th bone, brain and subdural windows. Images stored on PACS. All CT scanners at this facility use dose modulation, iterative reconstruction, and/or weight based d osing when appropriate to reduce radiation dose to as low as reasonably achievable (ALARA). [facility]: Dose Right [facility]: CareDose [facility]: Dose Right [facility]: Teradose 4D [facility]: [employer] RADIATION DOSE: CT Rad equipment meets quality standard of care and radiation dose reduction techniq ues were employed. CTDIvol: 53.2 mGy. DLP: 1070 mGy-cm. mGy. LIMITATIONS: None. FINDINGS: VENTRICLES: Age-appropriate. CEREBRUM: No masses. No hemorrhage. No midline shift. Areas of low density in the white matter mos t likely due to chronic micro-vascular ischemic change. No evidence for acute infarction. CEREBELLUM: No masses. No hemorrhage. No alteration of density. No evidence for acute infarction. EXTRAAXIAL SPACES: Mild age-related involutional change. No fluid collections. No masses. ORBITS AND GLOBE: No intra- or extraconal masses. Normal contour of globe without masses. CALVARIUM: No fracture. PARANASAL SINUSES: No fluid or mucosal thickening. SOFT TISSUES: No mass or hematoma. OTHER: No other significant finding. IMPRESSION: No acute intracranial findings. EVIDENCE OF ACUTE STROKE: NO. TECHNICAL DOCUMENTATION: JOB ID: [id number] Quality ID # [id number]: Final reports with documentation of one or more dose reduction techniques (e.g., Au tomated exposure control, adjustment of the mA and/or kV according to patient size, use of iterative reconstruction technique) 2010 [employer]- All Rights Reserved Reading location - IP/workstation name: [email or web address]
--- NOTE | 2018-09-14 12:53 | ER Document Report ---
ED General - General Chief Complaint: Fall Injury Stated Complaint: FALL/HEAD AND ARM LACERATION Time Seen by Provider: 09/14/18 11:40 Primary Care Provider: CASSI ROBLERO MD [Primary Care Provider] - Follow up in 3-5 days Mode of Arrival: Wheelchair Notes: Patient is a 88-year-old female that presents to the emergency department for chief complaint of fall with head injury. Patient reports that she was eating breakfast earlier this morning, and slid out of the chair, and felt onto her left side, she scraped her left forearm, and did hit her head, on the left side. Denies loss of consciousness, denies any lightheadedness, dizziness, nausea, vomiting or blurred vision or changes in her vision. Denies any numbness, weakness or tingling. Denies any neck pain or neck injury. No other complaints at this time. She denies being on any blood thinners. Tetanus is not up-to-date Past Medical History: Hypertension Past Surgical History: Partial hysterectomy Social History: Denies current tobacco, alcohol or drug use. Family History: Reviewed and noncontributory for presenting illness Allergies: Reviewed, see documented allergy list. REVIEW OF SYSTEMS: Other than noted above, the 12 point review of systems was reviewed with the patient and were negative, all pertinent findings are included in the HPI. PHYSICAL EXAMINATION: Vital signs reviewed, nursing noted reviewed. GENERAL: Well-appearing, well-nourished and in no acute distress. HEAD: On the patient's left temporal aspect of her face, there is a small scalp hematoma with a superficial abrasion measuring only 0.5 cm in diameter, no deep lacerations noted. EYES: Eyes appear normal, extraocular movements intact, sclera anicteric, conjunctiva are normal. PERRLA ENT: nares patent, oropharynx clear without exudates. Moist mucous membranes. No facial tenderness NECK: Normal range of motion, supple without lymphadenopathy, no midline tenderness with palpation or pain with range of motion. LUNGS: Breath sounds clear to auscultation bilaterally and equal. No wheezes rales or rhonchi. HEART: Regular rate and rhythm without murmurs ABDOMEN: Soft, nontender, normoactive bowel sounds. No rebound, guarding, or rigidity. No masses appreciated. EXTREMITIES: Nontender, good range of motion, no pitting or edema. There are superficial abrasions and skin tears noted to the left forearm, no deep lacerations or wounds, no gross deformities, good range of motion of all extremities, neurovascularly intact distally. NEUROLOGICAL: No focal neurological deficits. Moves all extremities spontaneously Motor and sensory grossly intact on exam. PSYCH: Normal mood, normal affect. SKIN: Warm, Dry, normal turgor, no rashes or lesions noted on exposed skin TRAVEL OUTSIDE OF THE [place] IN LAST 30 DAYS: No - Related Data Allergies/Adverse Reactions: sulfamethoxazole [From Janra] Allergy (Unknown, Verified 09/14/18 11:03) trimethoprim [From Janra] Allergy (Unknown, Verified 09/14/18 11:03) Past Medical History - General Information source: Patient, Relative - Social History Smoking Status: Never Smoker Chew tobacco use (# tins/day): No Drug Abuse: None Family History: Reviewed & Not Pertinent, Malignancy - Brother with bone cancer Patient has suicidal ideation: No Patient has homicidal ideation: No - Past Medical History Cardiac Medical History: Reports: Hx Hypertension Neurological Medical History: Denies: Hx Cerebrovascular Accident, Hx Migraine, Hx Seizures Renal/ Medical History: Denies: Hx Peritoneal Dialysis Past Surgical History: Reports: Hx Cholecystectomy, Hx Hysterectomy, Other - Cataract surgery - Immunizations Hx Pneumococcal Vaccination: 05/08/07 Physical Exam - Vital signs Vitals: Temp Pulse Resp BP Pulse Ox 98.7 F 54 L 18 137/69 H 98 09/14/18 11:09 09/14/18 11:09 09/14/18 11:09 09/14/18 11:09 09/14/18 11:09 Course - Re-evaluation Re-evalutation: Patient seen and examined vital signs reviewed. Laboratory data and/or imaging were ordered as appropriate for the patient's presenting symptoms and complaint, with consideration of any critical or life threatening conditions that may be associated with their obtained history and exam as noted above. Patient was treated with wound care to the left forearm Results were reviewed when available and demonstrated negative CT imaging of the head The patient was re-evaluated and was stable Evaluation was most consistent with closed head injury, skin tears to the left arm, patient discharged home, advised follow-up with primary care, and wound care, given reasons to return to the emergency department. Results were discussed with the patient at this point, after careful consideration I feel that that patient can be discharged from the emergency department, the patient was educated treatments and reasons to return to the emergency department based on their presumed diagnosis as noted above, they were advised to followup with a primary care physician in 2-3 days. Patient was agreeable to plan of care. *Note is created using voice recognition software and may contain spelling, syntax or grammatical errors. Head CT 09/14/18 11:40 IMPRESSION: No acute intracranial findings. EVIDENCE OF ACUTE STROKE: NO. - Vital Signs Vital signs: Temp Pulse Resp BP Pulse Ox 97.5 F 50 L 18 152/75 H 99 09/14/18 13:51 09/14/18 13:51 09/14/18 11:09 09/14/18 13:51 09/14/18 13:51 Discharge - Discharge Clinical Impression: Closed head injury Qualifiers: Encounter type: initial encounter Qualified Code(s): S09.90XA - Unspecified injury of head, initial encounter Skin tear of forearm without complication Qualifiers: Encounter type: initial encounter Laterality: left Qualified Code(s): S51.812A - Laceration without foreign body of left forearm, initial encounter Condition: Stable Disposition: HOME, SELF-CARE Instructions: Head Injury Precautions ([facility]) Additional Instructions: Please change dressing was once daily, he can apply a triple antibiotic/Neosporin, once or twice daily, monitor for signs of infection to the wounds on the left forearm. If you develop vomiting, or severe headache, I would recommend returning to the emergency department. Referrals: CASSI ROBLERO MD [Primary Care Provider] - Follow up in 3-5 days
[2018-09-14 14:08] VITALS: BP 152/75
== END 2018-09-14 13:55 | disposition home or self-care (01) ==
LOC: ER 11:01
DX: S09.90XA Unspecified injury of head, initial encounter (principal); S51.812A Laceration without foreign body of left forearm, initial encounter; S00.81XA Abrasion of other part of head, initial encounter; W07.XXXA Fall from chair, initial encounter; I10 Essential (primary) hypertension; Z90.710 Acquired absence of both cervix and uterus; Z88.3 Allergy status to other anti-infective agents; Z90.49 Acquired absence of other specified parts of digestive tract; Z23 Encounter for immunization
CPT/HCPCS: 70450; 90471; 90715; 99283

== ENCOUNTER 2018-09-27 13:08 | Emergency (ER) | payer MEDICARE, BC ==
--- NOTE | 2018-09-27 14:25 | ER Document Report ---
ED Medical Screen (RME) - General Chief Complaint: General Weakness Stated Complaint: WEAKNESS Time Seen by Provider: 09/27/18 14:23 Primary Care Provider: CASSI ROBLERO MD [Primary Care Provider] - Follow up as needed Mode of Arrival: Wheelchair Information source: Patient Notes: Patient presents with complaint of generalized weakness for the past 2 days. Patient was [place] a flea market today and had difficulty walking and was feeling off balance. Patient does states she has had a cough for the past several weeks. Patient denies any pain chest pain fever nausea or vomiting. Patient denies any headache pain. I have greeted and performed a rapid initial assessment of this patient. A comprehensive ED assessment and evaluation of the patient, analysis of test re sults and completion of the medical decision making process will be conducted by additional ED providers. TRAVEL OUTSIDE OF THE [place] IN LAST 30 DAYS: No - Related Data Allergies/Adverse Reactions: sulfamethoxazole [From ] Allergy (Unknown, Verified 09/27/18 14:20) trimethoprim [From Janra] Allergy (Unknown, Verified 09/27/18 14:20) Past Medical History - Past Medical History Cardiac Medical History: Reports: Hx Hypertension Neurological Medical History: Denies: Hx Cerebrovascular Accident, Hx Migraine, Hx Seizures Renal/ Medical History: Denies: Hx Peritoneal Dialysis Past Surgical History: Reports: Hx Cholecystectomy, Hx Hysterectomy, Other - Cataract surgery - Immunizations History of Influenza Vaccine for 02/2017 - 07/2017 Season: No Physical Exam - Vital signs Vitals: Temp Pulse Resp BP Pulse Ox 98.5 F 59 L 16 134/54 H 97 09/27/18 13:28 09/27/18 13:28 09/27/18 13:28 09/27/18 13:28 09/27/18 13:28 - General General appearance: Alert Notes: Patient awake, alert, patient with generalized weakness, respirations unlabored Course - Vital Signs Vital signs: Temp Pulse Resp BP Pulse Ox 98.5 F 59 L 16 134/54 H 97 09/27/18 13:28 09/27/18 13:28 09/27/18 13:28 09/27/18 13:28 09/27/18 13:28 Doctor's Discharge - Discharge Referrals: CASSI ROBLERO MD [Primary Care Provider] - Follow up as needed
--- NOTE | 2018-09-27 15:07 | RADIOLOGY REPORT (SQ) ---
EXAM DESCRIPTION: CHEST 2 VIEWS COMPLETED DATE/TIME: 09/27/2018 2:40 pm REASON FOR STUDY: weakness COMPARISON: 03/14/2018 EXAM PARAMETERS: NUMBER OF VIEWS: two views TECHNIQUE: Digital Frontal and Lateral radiographic views of the chest acquired. RADIATION DOSE: NA LIMITATIONS: none FINDINGS: LUNGS AND PLEURA: 3 cm masslike density projected over the left mid lung zone. Not clearl y identified on the lateral. Recommend CT of the chest without contrast for further evaluation. MEDIASTINUM AND HILAR STRUCTURES: No masses or contour abnormalities. HEART AND VASCULAR STRUCTURES: Heart normal size. No evidence for failure. BONES: No acute findings. HARDWARE: None in the chest. OTHER: No other significant finding. IMPRESSION: 3 cm mass left lung. See above discussion. This was not present on previous imaging st udies of the chest. Recommend CT chest without IV contrast. TECHNICAL DOCUMENTATION: JOB ID: [id number] [employer]- All Rights Reserved Reading location - IP/workstation name: [email or web address]
[2018-09-27 15:40] LABS: ABSOLUTE BASOPHILS # (AUTO) 0.1 10^3/uL (0.0-0.2); ABSOLUTE EOSINOPHILS # (AUTO) 0.4 10^3/uL (0.0-0.6); ABSOLUTE LYMPHOCYTES (AUTO) 2.8 10^3/uL (0.5-4.7); ABSOLUTE MONOCYTES (AUTO) 0.5 10^3/uL (0.1-1.4); ABSOLUTE NEUT (AUTO) 5.2 10^3/uL (1.7-8.2); BASOPHILS % (AUTO) 1.4 % (0-2); EOSINOPHILS % (AUTO) 4.3 % (0-6); HEMOGLOBIN 12.7 g/dL (12.0-15.5); MEAN CORPUSCULAR HEMOGLOBIN 30.9 pg (27.0-33.4); MEAN CORPUSCULAR HGB CONC 34.5 g/dL (32.0-36.0); MEAN CORPUSCULAR VOLUME 90 fl (80-97); PLATELET COUNT 286 10^3/uL (150-450); RED BLOOD COUNT 4.12 10^6/uL (3.72-5.28); RED CELL DISTRIBUTION WIDTH 13.2 % (11.5-14.0); SEGMENTED NEUTROPHILS % (AUTO) 57.3 % (42-78); TOTAL CELLS COUNTED % (AUTO) 100 %; WHITE BLOOD COUNT 9.1 10^3/uL (4.0-10.5)
[2018-09-27 15:46] LABS: APPEARANCE,URINE SLIGHTLY-CLOUDY; BILIRUBIN,URINE NEGATIVE (NEGATIVE); COLOR,URINE YELLOW; GLUCOSE, URINE NEGATIVE (NEGATIVE); KETONES,URINE NEGATIVE (NEGATIVE); LEUKOCYTE ESTERASE,URINE TRACE (NEGATIVE); NITRITE,URINE NEGATIVE (NEGATIVE); PROTEIN,URINE NEGATIVE (NEGATIVE); URINE SPECIFIC GRAVITY 1.005; UROBILINOGEN,URINE NEGATIVE mg/dL (<2.0)
[2018-09-27 16:02] LABS: ALANINE AMINOTRANSFERASE 24 U/L (9-52); ALKALINE PHOSPHATASE 91 U/L (38-126); ANION GAP 15 (5-19); ASPARTATE AMINO TRANSFERASE 31 U/L (14-36); BILIRUBIN,DIRECT 0.3 mg/dL (0.0-0.4); BILIRUBIN,TOTAL 0.8 mg/dL (0.2-1.3); BLOOD UREA NITROGEN 17 mg/dL (7-20); CARBON DIOXIDE 26 mmol/L (22-30); CHLORIDE 95 mmol/L (98-107); GLUCOSE 82 mg/dL (75-110); POTASSIUM 3.9 mmol/L (3.6-5.0); SODIUM 135.5 mmol/L (137-145); TOTAL PROTEIN 6.7 g/dL (6.3-8.2)
--- NOTE | 2018-09-27 17:39 | EKG REPORT ---
SEVERITY:- NORMAL ECG - SINUS RHYTHM : Confirmed by: Gay Augustine 27-Sep-2018 17:37:52
[2018-09-27] MEDS ORDERED: NORMAL SALINE 1000 ML 500 ML IV ONE (18:16)
--- NOTE | 2018-09-27 19:24 | RADIOLOGY REPORT (SQ) ---
EXAM DESCRIPTION: CT CHEST WITH COMPLETED DATE/TIME: 09/27/2018 7:07 pm REASON FOR STUDY: sob, lung mass COMPARISON: 03/15/2017 TECHNIQUE: CT scan of the chest performed using helical scanning technique with dynamic intravenous contrast injection. Images reviewed with lung, soft tissue and bone windows. Reconstructed coronal and sagittal MPR and MIP images reviewed. All images stored on PACS. All CT scanners at this facility use dose modulation, iterative reconstruction, and/or weight based d osing when appropriate to reduce radiation dose to as low as reasonably achievable (ALARA). [facility]: Dose Right [facility]: CareDose [facility]: Dose Right [facility]: Teradose 4D [facility]: [employer]! CONTRAST TYPE AND DOSE: contrast/concentration: Isovue 350.00 mg/ml; Total Contrast Delivered: 70.0 ml; Total Saline Delivered: 55.0 ml RENAL FUNCTION: BUN 17 creatinine 1.44 RADIATION DOSE: . LIMITATIONS: None. FINDINGS: LUNGS AND PLEURA: No opacities, nodules, masses. No pneumothorax. No effusions. HILAR AND MEDIASTINAL STRUCTURES: No identified masses or abnormal nodes. HEART AND VASCULAR STRUCTURES: No aneurysm or dissection. No central pulmonary emboli. No pericardi al effusion. Coronary atherosclerosis. HARDWARE: None in the chest. UPPER ABDOMEN: No significant findings. Limited exam. THYROID AND OTHER SOFT TISSUES: No masses. No adenopathy. BONES: A sclerotic left rib lesion is once again seen. OTHER: No other significant finding. IMPRESSION: Stable sclerotic left rib lesion. No acute findings within the chest. TECHNICAL DOCUMENTATION: JOB ID: [id number] Quality ID # [id number]: Final reports with documentation of one or more dose reduction techniques (e.g., Au tomated exposure control, adjustment of the mA and/or kV according to patient size, use of iterative reconstruction technique) 2010 [employer]- All Rights Reserved Reading location - IP/workstation name: [email or web address]
--- NOTE | 2018-09-27 19:29 | RADIOLOGY REPORT (SQ) ---
EXAM DESCRIPTION: CT ABD/PELVIS WITH IV ONLY COMPLETED DATE/TIME: 09/27/2018 7:07 pm REASON FOR STUDY: eval lung mass ?mets COMPARISON: None. TECHNIQUE: CT scan of the abdomen and pelvis performed using helical scanning technique with dynamic intravenous contrast injection. No oral contrast. Images reviewed with lung, soft tissue, and bone windows. Reconstructed coronal and sagittal MPR images reviewed. Delayed images for evaluation of the urinary system also acquired. All images stored on PACS. All CT scanners at this facility use dose modulation, iterative reconstruction, and/or weight based d osing when appropriate to reduce radiation dose to as low as reasonably achievable (ALARA). [facility]: Dose Right [facility]: CareDose [facility]: Dose Right [facility]: Teradose 4D [facility]: [employer] CONTRAST TYPE AND DOSE: 70 mL Omnipaque 350- low osmolar. RENAL FUNCTION: BUN 17 creatinine 1.44 RADIATION DOSE: CT Rad equipment meets quality standard of care and radiation dose reduction techniq ues were employed. CTDIvol: 11.2 - 17.6 mGy. DLP: 1532 mGy-cm.. LIMITATIONS: None. FINDINGS: LOWER CHEST: See separate report of the CT of the chest. LIVER: Normal size. No masses. No dilated ducts. SPLEEN: Normal size. No focal lesions. PANCREAS: No masses. No significant calcifications. No adjacent inflammation or peripancreatic fluid collections. Pancreatic duct not dilated. GALLBLADDER: Surgically absent. ADRENAL GLANDS: No significant masses or asymmetry. RIGHT KIDNEY AND URETER: No solid masses. No significant calcifications. No hydronephrosis or hyd roureter. LEFT KIDNEY AND URETER: No solid masses. No significant calcifications. No hydronephrosis or hydr oureter. AORTA AND VESSELS: No aneurysm. No dissection. Renal arteries, SMA, celiac without stenosis. RETROPERITONEUM: No retroperitoneal adenopathy, hemorrhage or masses. BOWEL AND PERITONEAL CAVITY: No masses or inflammatory changes. No free fluid or peritoneal masses. APPENDIX: Not identified. PELVIS: No mass. No free fluid. Normal bladder. ABDOMINAL WALL: No masses. No hernias. BONES: Grade 1 anterolisthesis of L5 on S1. Degenerative disc disease. Spondylosis. OTHER: No other significant finding. IMPRESSION: No acute finding in the abdomen or pelvis. Osseous findings as described. TECHNICAL DOCUMENTATION: JOB ID: [id number] Quality ID # [id number]: Final reports with documentation of one or more dose reduction techniques (e.g., Au tomated exposure control, adjustment of the mA and/or kV according to patient size, use of iterative reconstruction technique) 2010 [employer]- All Rights Reserved Reading location - IP/workstation name: [email or web address]
--- NOTE | 2018-09-27 20:17 | ER Document Report ---
ED General - General Chief Complaint: General Weakness Stated Complaint: WEAKNESS Time Seen by Provider: 09/27/18 14:23 Primary Care Provider: CASSI ROBLERO MD [Primary Care Provider] - Follow up as needed Mode of Arrival: Wheelchair Notes: Patient is an 88-year-old female past medical history of hypertension, frequent falls, presents due to generalized weakness and fatigue. Apparently the day today the patient was at a fle[place] market, began feeling very tired, weak and family she needed to sit down. She did not fall or injure herself today. No syncopal episode. States her symptoms came on gradually, progressively worsened and improved upon sitting down. Family states that she has had many similar episodes in the past but wanted to make sure that there is nothing else wrong today. She denies any chest pain, shortness of breath, focal weakness, numbness or confusion at the time of her symptoms and currently denies any symptoms of any kind. Has not seen her primary care physician regarding today's concerns. TRAVEL OUTSIDE OF THE [place] IN LAST 30 DAYS: No - Related Data Allergies/Adverse Reactions: sulfamethoxazole [From [facility]] Allergy (Unknown, Verified 09/27/18 14:20) trimethoprim [From [facility]] Allergy (Unknown, Verified 09/27/18 14:20) Past Medical History - General Information source: Patient - Social History Smoking Status: Never Smoker Chew tobacco use (# tins/day): Yes Frequency of alcohol use: None Drug Abuse: None Lives with: Family Family History: Reviewed & Not Pertinent, Malignancy - Brother with bone cancer Patient has suicidal ideation: No Patient has homicidal ideation: No - Past Medical History Cardiac Medical History: Reports: Hx Hypertension Neurological Medical History: Denies: Hx Cerebrovascular Accident, Hx Migraine, Hx Seizures Renal/ Medical History: Denies: Hx Peritoneal Dialysis Past Surgical History: Reports: Hx Cholecystectomy, Hx Hysterectomy, Other - Cataract surgery - Immunizations Hx Pneumococcal Vaccination: 05/08/07 Review of Systems - Review of Systems Notes: Constitutional: Negative for fever. Positive for fatigue HENT: Negative for sore throat. Eyes: Negative for visual changes. Cardiovascular: Negative for chest pain. Respiratory: Negative for shortness of breath. Gastrointestinal: Negative for abdominal pain, vomiting or diarrhea. Genitourinary: Negative for dysuria. Musculoskeletal: Negative for back pain. Skin: Negative for rash. Neurological: Negative for headaches, weakness or numbness. Positive for global weakness 10 point ROS negative except as marked above and in HPI. Physical Exam - Vital signs Vitals: Temp Pulse Resp BP Pulse Ox 98.5 F 59 L 16 134/54 H 97 09/27/18 13:28 09/27/18 13:28 09/27/18 13:28 09/27/18 13:28 09/27/18 13:28 Interpretation: Bradycardic Notes: PHYSICAL EXAMINATION: GENERAL: Elderly female in no acute distress HEAD: Atraumatic, normocephalic. EYES: Pupils equal round and reactive to light, extraocular movements intact, sclera anicteric, conjunctiva are normal. ENT: nares patent, oropharynx clear without exudates. Moderately dry mucous membranes. NECK: Normal range of motion, supple without lymphadenopathy LUNGS: Breath sounds clear to auscultation bilaterally and equal. No wheezes rales or rhonchi. HEART: Regular rate and rhythm without murmurs ABDOMEN: Soft, nontender, normoactive bowel sounds. No guarding, no rebound. No masses appreciated. EXTREMITIES: Normal range of motion, no pitting or edema. No cyanosis. NEUROLOGICAL: Face symmetric. Tongue protrudes midline. Extraocular motions intact. Pupils are 2 mm and equally reactive. Normal speech. 5 out of 5 strength in both the distal and proximal upper and lower extremities bilaterally. Sensation is grossly intact throughout. Finger to nose testing normal. Pronator drift normal. PSYCH: Normal mood, normal affect. SKIN: Warm, Dry, normal turgor, no rashes or lesions noted. Course - Re-evaluation Re-evalutation: 09/27/18 20:13 Presentation and an overall well-appearing patient in no acute distress who complains of generalized weakness today while at a [employer]. She did not have any syncopal or near syncopal episodes stating only she felt globally weak at time of evaluation, patient's vitals are within normal limits and they are denying any additional acute complaints. Physical examination without focal findings. No neurologic deficits. They deny any chest pain, shortness of clyde th, nausea, vomiting, or diarrhea. No dysuria or fever. Basic laboratories including and urinalysis are unremarkable. Troponin is also negative. Low clinical suspicion for ACS, occult pneumonia, acute intra-abdominal pathology, stroke, or transient ischemic attack based on clinical history, examination, and laboratories. A CT of the chest abdomen pelvis was obtained as there was concern of possible malignancy based on initial chest x-ray. Thankfully CT imaging is noted to be normal. They have tolerated oral intake without difficulty. I have discussed the importance of close outpatient follow-up as well as the need to return to emergency room immediately should they have any new or worsening symptoms. The patient and surrogate's are in agreement with this plan and verbalized indications for return to emergency department. - Vital Signs Vital signs: Temp Pulse Resp BP Pulse Ox 98.2 F 62 20 171/72 H 97 09/27/18 20:20 09/27/18 20:20 09/27/18 20:20 09/27/18 20:20 09/27/18 20:20 - Laboratory Result Diagrams: 09/27/18 15:20 09/27/18 15:20 Laboratory results interpreted by me: 09/27/18 09/27/18 15:20 15:20 Sodium 135.5 L Chloride 95 L Creatinine 1.44 H Est GFR ( Amer) 42 L Est GFR (Non-Af Amer) 34 L Ur Leukocyte Esterase TRACE H - Diagnostic Test Radiology reviewed: Image reviewed, Reports reviewed Radiology results interpreted by me: 09/27/18 20:16 Chest x-ray: No acute infiltrate - EKG Interpretation by Me Additional EKG results interpreted by me: 09/27/18 20:16 Sinus rhythm, rate 52. No ST elevations or depressions. QTC is 432. Discharge - Discharge Clinical Impression: Weakness Fatigue Qualifiers: Fatigue type: unspecified Qualified Code(s): R53.83 - Other fatigue Condition: Good Disposition: HOME, SELF-CARE Additional Instructions: You were seen today for feeling weak the exact cause of your symptoms is unclear but your workup here is reassuring without any concerning findings. Please follow closely with your primary care physician in the next 1-3 days. Return if you pass out, develop focal weakness/numbness, have persistent vomiting, chest pain, shortness of breath or any other symptoms that are concerning to you Referrals: CASSI ROBLERO MD [Primary Care Provider] - Follow up as needed
[2018-09-27 20:22] VITALS: BP 171/72
== END 2018-09-27 20:37 | disposition home or self-care (01) ==
LOC: ER 13:08
DX: R53.1 Weakness (principal); R53.83 Other fatigue; R05 Cough; I10 Essential (primary) hypertension; Z91.81 History of falling; Z88.3 Allergy status to other anti-infective agents; Z90.49 Acquired absence of other specified parts of digestive tract; Z90.710 Acquired absence of both cervix and uterus
CPT/HCPCS: 93005; 99285; 96360; 36415; 83735; 85025; 80053; 81001; 84484; 71046; 71260; 74177; 93010; J7030